=== PATIENT | female | born 1960 | race Caucasian/White ===

== ENCOUNTER 2022-07-19 01:27 | Inpatient (IN) | payer BC ==
[~2022-07-19] VITALS: Ht 165.1 cm; Wt 110.0 kg
[~2022-07-19 01:27] MED LIST: CLOP75TA34 PO; LISI40TA13 PO; LURA40TA PO; PER5325T PO; RES15C PO; TOP100T PO; VENL-190 PO; ZOC40T PO
[2022-07-19 01:42] LABS: BASOPHILS # (AUTO) 0.1 X10'3 (0-0.2); BASOPHILS % (AUTO) 0.8 % (0-1); EOSINOPHILS # (AUTO) 0.3 X10'3 (0-0.9); EOSINOPHILS % (AUTO) 2.4 % (0-6); HEMATOCRIT 54.3 % (35.0-45.0); LYMPHOCYTES # (AUTO) 4.3 X10'3 (1.1-4.8); LYMPHOCYTES % (AUTO) 36.7 % (21-51); MEAN CORPUSCULAR HEMOGLOBIN 31.5 PG (27.0-31.0); MEAN CORPUSCULAR HGB CONC 34.6 g/dL (33.0-36.5); MEAN CORPUSCULAR VOLUME 90.9 FL (78-98); MEAN PLATELET VOLUME 8.4 FL (7.4-10.4); MONOCYTES # (AUTO) 0.8 X10'3 (0-0.9); MONOCYTES % (AUTO) 7.1 % (2-12); NEUTROPHILS # (AUTO) 6.2 X10'3 (1.8-7.7); PLATELET COUNT 237 X10'3 (140-440); RED BLOOD COUNT 5.97 X10'6 (4.20-5.60); RED CELL DISTRIBUTION WIDTH 13.9 % (11.5-14.5); WHITE BLOOD COUNT 11.7 X10'3 (4.5-11.0)
[2022-07-19 01:46] LABS: HEMOGLOBIN 18.8 g/dl (12.0-16.0)
[2022-07-19] MEDS ORDERED: diltiazem 5mg/ml 5ml inj. IV ONE (01:50)
[2022-07-19] MEDS ORDERED: normal saline 1000ml 1,000 ML IV ONE (01:50)
[2022-07-19 01:56] LABS: ALANINE AMINOTRANSFERASE 27 U/L (12-78); ALBUMIN 4.6 G/DL (3.4-5.0); ALKALINE PHOSPHATASE 114 IU/L (46-116); ANION GAP 12 (8-16); ASPARTATE AMINO TRANSFERASE 21 U/L (10-37); BILIRUBIN,TOTAL 0.3 MG/DL (0.1-1.0); BLOOD UREA NITROGEN 10 MG/DL (7-18); CHLORIDE 101 MMOL/L (99-107); CREATININE 0.91 MG/DL (0.40-0.90); GLUCOSE 145 MG/DL (70-104); POTASSIUM 3.5 MMOL/L (3.5-5.1); SODIUM 140 MMOL/L (135-145); TOTAL PROTEIN 9.1 G/DL (6.4-8.2); eGFR 63 ML/MIN
[2022-07-19] MEDS: diltiazem-NS 100mg/100ml 100 ML IV SCH ×2 (02:44→21:35)
[2022-07-19 03:04] LABS: COLOR,URINE STRAW (Yellow); GLUCOSE, URINE NEGATIVE (Neg); KETONES,URINE NEGATIVE (Neg); LEUKOCYTE ESTERASE ,URINE NEGATIVE (Neg); NITRITES, URINE NEGATIVE (Neg); OCCULT BLOOD,URINE SMALL (Neg); PROTEIN,URINE 100 mg/dl (Neg); UROBILINOGEN,URINE 0.2 E.U/dL (0.2-1.0)
[2022-07-19] MEDS ORDERED: mag hydrox/Alum hydrox/simeth 30ml oral suspension PO PRN (03:10)
[2022-07-19] MEDS ORDERED: potassium Cl 20 mEq SR tablet PO PRN ×2 (03:10)
[2022-07-19] MEDS ORDERED: magnesium Cl slow-release 64mg tablet PO PRN (03:10)
[2022-07-19] MEDS ORDERED: magnesium hydroxide 30ml (MOM) UD suspension PO PRN (03:10)
[2022-07-19] MEDS ORDERED: ondansetron/PF 4mg/2ml inj IV PRN (03:10)
[2022-07-19] MEDS ORDERED: PERFLUTREN PROTEIN-A MICROSPHR (Optison) 0.22 MG/ML 3ML VIAL IV PRN (03:10)
[2022-07-19] MEDS ORDERED: magnesium 4gm in 100ml NS 100 ML IV PRN (03:10)
[2022-07-19] MEDS ORDERED: acetaminophen 325mg tablet PO PRN (03:10)
[2022-07-19] MEDS ORDERED: potassium Cl 40MEQ/1/2NS 520ml 520 ML IV PRN (03:10)
[2022-07-19] MEDS ORDERED: normal saline 1000ml 1,000 ML IV SCH (03:10)
[2022-07-19 03:13] LABS: UA COLLECTION TYPE CLN CATCH MIDSTREAM
[2022-07-19 03:17] LABS: URINE AMPHETAMINE SCREEN NEGATIVE (Neg); URINE BARBITUATE SCREEN NEGATIVE (Neg); URINE BENZODIAZEPINES SCREEN NEGATIVE (Neg); URINE CANNABINOID SCREEN NEGATIVE (Neg); URINE COCAINE SCREEN NEGATIVE (Neg); URINE METHADONE SCREEN NEGATIVE (Neg); URINE OPIATE SCREEN NEGATIVE (Neg); URINE PHENCYCLIDINE SCREEN NEGATIVE (Neg)
[2022-07-19 03:21] LABS: AMORPHOUS PHOSPHATES 1+; BACTERIA,URINE FEW /HPF (Neg); CLARITY,URINE SLIGHTLY CLOUDY (Clear); SQUAMOUS EPITHELIAL CELL,UR FEW /LPF (FEW)
--- NOTE | 2022-07-19 04:31 | NUR ---
Therapeutic phlebotmy completed, 200mL blood removed via 20 ga in L A/C. Patient tolerated well. Gonzalez GUAMAN aware. Patient blood pressure showed immediate improvement.
[2022-07-19 04:36] LABS: POTASSIUM 3.6 MMOL/L (3.5-5.1)
--- NOTE | 2022-07-19 04:38 | NUR ---
Patient had sudden decrease in HR and BP. Patient states she is lightheaded and nauseous. Nasrin GUAMAN aware, verbal order for 250mL bolus.
--- NOTE | 2022-07-19 04:45 | NUR ---
Nasrin GUAMAN at bedside. Patient had syncopal episode in which she became bradycardic with HR dropping to 37. Patient had brief LOC but awoke telling jokes and acting to baseline mentation after approx 3 minutes.
[2022-07-19] MEDS: K and/or MAG REPLACEMENT MC SCH ×2 (06:33→19:03)
[2022-07-19] MEDS: losartan 50mg tablet PO SCH (08:14)
[2022-07-19] MEDS: docusate sod 100mg capsule PO SCH ×2 (08:14→19:35)
[2022-07-19] MEDS: heparin, porcine 5000 units/ml vial SQ SCH ×3 (08:15→23:21)
[2022-07-19] MEDS ORDERED: METO50TA16 PO (11:38)
[2022-07-19] MEDS ORDERED: ATOR20TA66 PO (11:38)
[2022-07-19] MEDS ORDERED: VALS80TA32 PO (11:38)
[2022-07-19] MEDS ORDERED: CLON0.2T PO (11:38)
[2022-07-19] MEDS ORDERED: CARSR60C PO (13:04)
[2022-07-19] MEDS ORDERED: CLOP75TA34 PO (13:29)
[2022-07-19 14:20] VITALS: BP 159/83
[2022-07-19] MEDS ORDERED: FLU VACC QS2022-23(6MOS UP)/PF 60 MCG/0.5 ML SYRINGE IMVAC ONE (14:45)
[2022-07-19] MEDS: cloNIDine 0.1 mg tablet PO SCH ×2 (15:14→19:37)
[2022-07-19 18:00] VITALS: BP 159/91
[2022-07-19 23:00] VITALS: BP 137/89
[2022-07-20 02:56] VITALS: BP 144/82
[2022-07-20 05:56] LABS: BASOPHILS % (AUTO) 0.7 % (0-1); EOSINOPHILS # (AUTO) 0.2 X10'3 (0-0.9); EOSINOPHILS % (AUTO) 2.4 % (0-6); HEMATOCRIT 44.7 % (35.0-45.0); LYMPHOCYTES # (AUTO) 2.5 X10'3 (1.1-4.8); LYMPHOCYTES % (AUTO) 37.7 % (21-51); MEAN CORPUSCULAR HEMOGLOBIN 30.9 PG (27.0-31.0); MEAN CORPUSCULAR HGB CONC 33.6 g/dL (33.0-36.5); MEAN CORPUSCULAR VOLUME 91.9 FL (78-98); MEAN PLATELET VOLUME 8.5 FL (7.4-10.4); MONOCYTES # (AUTO) 0.5 X10'3 (0-0.9); MONOCYTES % (AUTO) 7.8 % (2-12); NEUTROPHILS # (AUTO) 3.4 X10'3 (1.8-7.7); NEUTROPHILS % (AUTO) 51.4 % (42-75); PLATELET COUNT 182 X10'3 (140-440); RED BLOOD COUNT 4.86 X10'6 (4.20-5.60); RED CELL DISTRIBUTION WIDTH 13.9 % (11.5-14.5); WHITE BLOOD COUNT 6.5 X10'3 (4.5-11.0)
[2022-07-20 06:00] VITALS: BP 156/99
[2022-07-20 06:17] LABS: ALANINE AMINOTRANSFERASE 22 U/L (12-78); ALBUMIN 3.5 G/DL (3.4-5.0); ALBUMIN/GLOBULIN RATIO 1.1 (1.1-1.5); ALKALINE PHOSPHATASE 77 IU/L (46-116); ANION GAP 4 (8-16); ASPARTATE AMINO TRANSFERASE 18 U/L (10-37); BILIRUBIN,TOTAL 0.5 MG/DL (0.1-1.0); BLOOD UREA NITROGEN 13 MG/DL (7-18); BUN/CREATININE RATIO 14.4 (6.6-38.0); CALCIUM 9.2 MG/DL (8.5-10.1); CHLORIDE 104 MMOL/L (99-107); GLUCOSE 98 MG/DL (70-104); POTASSIUM 4.2 MMOL/L (3.5-5.1); SODIUM 140 MMOL/L (135-145); TOTAL CARBON DIOXIDE 32.1 MMOL/L (24-32); TOTAL PROTEIN 6.8 G/DL (6.4-8.2); eGFR 64 ML/MIN
[2022-07-20] MEDS: docusate sod 100mg capsule PO SCH (07:38)
[2022-07-20] MEDS: losartan 50mg tablet PO SCH (07:38)
[2022-07-20] MEDS: cloNIDine 0.1 mg tablet PO SCH (07:38)
[2022-07-20] MEDS: heparin, porcine 5000 units/ml vial SQ SCH (07:39)
[2022-07-20] MEDS: K and/or MAG REPLACEMENT MC SCH (08:00)
[2022-07-20] MEDS ORDERED: FLU VACC QS2022-23(6MOS UP)/PF 60 MCG/0.5 ML SYRINGE IMVAC ONE (08:00)
[2022-07-20 10:00] VITALS: BP 144/92
[2022-07-20] MEDS ORDERED: APIX5TAB3 PO (12:43)
--- NOTE | 2022-07-20 14:24 | NUR ---
paged Dr Osborn "[id number] Heather Valerio please call [phone], question before discharge. Britt GOMEZ"
[2022-07-20] MEDS ORDERED: DILT-36 PO (14:32)
--- NOTE | 2022-07-20 14:54 | NUR ---
pt educated about discharge paperwork. Ivs removed, left with in private vehicle
== END 2022-07-20 14:53 | disposition home or self-care (01) | DRG 309 ==
LOC: ER 01:27 → ED HOLD 03:14 → EDBEDREQ 12:52 → PCU 3S 14:12
PROVIDERS: ADMIT Internal Medicine; ATTEND Family Medicine
PROC: 5A09357 Assistance with Respiratory Ventilation, Less than 24 Consecutive Hours, Continuous Positive Airway Pressure (ICD-10-PCS; principal; 2022-07-19)
PROC: 5A09357 Assistance with Respiratory Ventilation, Less than 24 Consecutive Hours, Continuous Positive Airway Pressure (ICD-10-PCS; 2022-07-20)
PROC: 3E02340 Introduction of Influenza Vaccine into Muscle, Percutaneous Approach (ICD-10-PCS; 2022-07-20)
DX: I48.91 Unspecified atrial fibrillation (principal); Z68.41 Body mass index [BMI] 40.0-44.9, adult; D75.1 Secondary polycythemia; E78.00 Pure hypercholesterolemia, unspecified; I10 Essential (primary) hypertension; F32.A Depression, unspecified; G47.33 Obstructive sleep apnea (adult) (pediatric); I95.9 Hypotension, unspecified; R00.1 Bradycardia, unspecified; E66.9 Obesity, unspecified; I25.10 Atherosclerotic heart disease of native coronary artery without angina pectoris; J44.9 Chronic obstructive pulmonary disease, unspecified; T44.7X5A Adverse effect of beta-adrenoreceptor antagonists, initial encounter; Y92.89 Other specified places as the place of occurrence of the external cause; Z86.73 Personal history of transient ischemic attack (TIA), and cerebral infarction without residual deficits; Z87.891 Personal history of nicotine dependence; Z91.041 Radiographic dye allergy status; Z95.5 Presence of coronary angioplasty implant and graft; Z23 Encounter for immunization; Z79.899 Other long term (current) drug therapy
CPT/HCPCS: 36415; 71045; 80053; 80305; 81001; 83735; 83880; 84132; 84484; 85025; 87081; 87088; 90686; 93306; 94760; 96361; 96365; 96376; 99285; G0378; J1644; J2405; J3490; J7030; J7050

== ENCOUNTER 2022-09-03 01:53 | Emergency (ER) | payer BC ==
[~2022-09-03] VITALS: Ht 167.6 cm; Wt 120.0 kg
[~2022-09-03 01:53] MED LIST changes: +APIX5TAB3 PO; +ATOR20TA66 PO; -CLOP75TA34 PO; +DILT-36 PO; -LISI40TA13 PO; -LURA40TA PO; -PER5325T PO; -RES15C PO; -TOP100T PO; +VALS80TA32 PO; -VENL-190 PO; -ZOC40T PO
[2022-09-03 02:43] LABS: BASOPHILS # (AUTO) 0.1 X10'3 (0-0.2); BASOPHILS % (AUTO) 0.7 % (0-1); EOSINOPHILS # (AUTO) 0.2 X10'3 (0-0.9); EOSINOPHILS % (AUTO) 2.6 % (0-6); HEMOGLOBIN 15.5 g/dl (12.0-16.0); LYMPHOCYTES # (AUTO) 2.7 X10'3 (1.1-4.8); LYMPHOCYTES % (AUTO) 33.5 % (21-51); MEAN CORPUSCULAR HEMOGLOBIN 31.5 PG (27.0-31.0); MEAN CORPUSCULAR HGB CONC 34.5 g/dL (33.0-36.5); MEAN CORPUSCULAR VOLUME 91.2 FL (78-98); MEAN PLATELET VOLUME 8.1 FL (7.4-10.4); MONOCYTES # (AUTO) 0.5 X10'3 (0-0.9); MONOCYTES % (AUTO) 6.1 % (2-12); NEUTROPHILS # (AUTO) 4.6 X10'3 (1.8-7.7); NEUTROPHILS % (AUTO) 57.1 % (42-75); PLATELET COUNT 196 X10'3 (140-440); RED BLOOD COUNT 4.93 X10'6 (4.20-5.60); RED CELL DISTRIBUTION WIDTH 13.8 % (11.5-14.5)
[2022-09-03 02:45] LABS: ALANINE AMINOTRANSFERASE 18 U/L (12-78); ALBUMIN/GLOBULIN RATIO 1.1 (1.1-1.5); ALKALINE PHOSPHATASE 94 IU/L (46-116); ANION GAP 9 (8-16); ASPARTATE AMINO TRANSFERASE 15 U/L (10-37); BILIRUBIN,TOTAL 0.4 MG/DL (0.1-1.0); BLOOD UREA NITROGEN 13 MG/DL (7-18); BUN/CREATININE RATIO 16.7 (10.0-20.0); CALCIUM 9.4 MG/DL (8.5-10.1); CHLORIDE 103 MMOL/L (99-107); CREATININE 0.78 MG/DL (0.40-0.90); GLUCOSE 102 MG/DL (70-104); POTASSIUM 3.3 MMOL/L (3.5-5.1); SODIUM 141 MMOL/L (135-145); TOTAL PROTEIN 7.8 G/DL (6.4-8.2); eGFR 75 ML/MIN
[2022-09-03 02:51] LABS: MAGNESIUM 2.1 MG/DL (1.5-2.4)
[2022-09-03 04:22] VITALS: BP 187/116
== END 2022-09-03 04:28 | disposition home or self-care (01) ==
LOC: ER 01:54
DX: I10 Essential (primary) hypertension (principal); E78.00 Pure hypercholesterolemia, unspecified; I11.0 Hypertensive heart disease with heart failure; J44.9 Chronic obstructive pulmonary disease, unspecified; Z88.8 Allergy status to other drugs, medicaments and biological substances; Z79.899 Other long term (current) drug therapy
CPT/HCPCS: 36415; 80053; 83735; 83880; 84484; 85025; 93005; 99284

== ENCOUNTER 2025-03-13 08:37 | Inpatient (IN) | payer BC ==
[~2025-03-13] VITALS: Ht 167.6 cm; Wt 124.5 kg
[2025-03-13] VITALS (12 sets, daily range): BP systolic 148–190; BP diastolic 83–103; PULSE 78–122; RESP 16–24; TEMP 97.9; O2SAT 94–97
--- NOTE | 2025-03-13 08:47 | ELECTROCARDIOGRAPH REPORT ---
[facility] Test Date: 2025-03-13 Test Time: 08:45:03 Pat Name: MARGARETH RAM Department: EMERGENCY ROOM Room: [place] [address] Gender: F Radiographer Angiogram: ELIZABETH : 1960 Requested By: ALLIE FOURNIER Order Number: [id number] Reading MD: Dr. Anderson Luz Measurements Intervals [place] Rate: 115 P: 56 OH: 151 QRS: 43 QRSD: 90 T: 121 QT: 336 QTc: 465 Interpretive Statements Atrial-paced complexes Repol abnrm suggests ischemia, lateral leads Minimal ST elevation, inferior leads Electronically Signed On 03-13-2025 20:30:[address] Anderson Luz Please click the below link to view image of tracing.
[2025-03-13] MEDS: ipratropium/albuterol 3ml nebule NEB ONE (08:54)
--- NOTE | 2025-03-13 09:11 | RADIOLOGY REPORT ---
CHEST RADIOGRAPH Indication: SOB Technique: Single frontal view of the chest was obtained COMPARISON: CHEST,SINGLE VIEW on DOS: 07/19/22, CHEST,SINGLE VIEW on DOS: 06/28/22 FINDINGS: Lines and Tubes: None Lungs: Congestion Pleura: No effusion. No pneumothorax. Cardiomediastinal contours: Unremarkable Bones: Unremarkable IMPRESSION: Increased interstital prominence. This may represent pulmonary vascular congestion and/or viral pneumonia. Clinical correlation advised.
[2025-03-13 09:27] LABS: MEAN PLATELET VOLUME 9.4 FL (7.4-10.4); RED CELL DISTRIBUTION WIDTH 13.7 % (11.5-14.5)
[2025-03-13 09:32] LABS: APTT 31 SECONDS (22-32); INR 1.1 INR
[2025-03-13 09:34] LABS: CREATININE 0.74 MG/DL (0.40-0.90); TOTAL CARBON DIOXIDE 27.8 MMOL/L (24-32); eCRCL 72 ML/MIN; eGFR 79 ML/MIN
[2025-03-13 09:41] LABS: PRO BRAIN NATRIURETIC PEPTIDE 797 PG/ML (0-125)
[2025-03-13 10:10] LABS: ABG BASE EXCESS 0.1 mmol/L (-2.0-3.0); ABG HCO3 24.1 mmol/L (21.0-28.0); ABG OXYGEN SATURATION 91.6 % (94.0-98.0); ABG PCO2 (T) 38.9 mmHg (32.0-45.0); ABG PH (T) 7.414 (7.350-7.450); ABG PO2 (T) 63.1 mmHg (83.0-108.0); ALLEN'S TEST POSITIVE; FCOHb 2.5 % (0.5-1.5); FHHb 8.2 % (0.0-5.0); FIO2 21.0 mmHg/%; FMetHb 0.2 % (0.0-1.5); FO2Hb 89.1 % (94.0-98.0); MODE ROOM AIR; PATIENT TEMPERATURE 37.7; TOTAL HEMOGLOBIN 16.7 G/dl (12.0-16.0)
--- NOTE | 2025-03-13 10:37 | Physician Documentation ---
History of Present Illness ~ Chief Complaint: Shortness of Breath Stated Complaint: SOB Time Seen by MD: 08:42 OK to notify your PCP?: Yes Primary Medical Doctor: Kirsty Tom MD Mode of Arrival: EMS HPI 64-year-old female patient with a history of hypertension, dyslipidemia, CVA, atrial fibrillation on Eliquis who is current smoker two pack a day came to the emergency room because of shortness a breath palpitation. The patient denies chest pain. She was found to be having real difficulty breathing this morning and that is why they called the ambulance. No fever no chills. No nausea vomiting abdominal pain. No trauma. Medication Reconciliation Allergies: Coded Allergies: iodine (Verified Allergy, Severe, facial edema, 06/28/22) bupropion HCl (Verified Adverse Reaction, Unknown, increased depression, 06/28/22) Uncoded Allergies: IV DYE, IODINE CONTAINING CONTRAST (Allergy, Severe, facial edema, 06/28/22) Scheduled Apixaban (Eliquis), 5 MG PO BID Atorvastatin Calcium (Atorvastatin Calcium), 1 TAB PO DAILY, (Reported) Diltiazem HCl (Diltiazem 24Hr Cd), 1 CAP PO DAILY Valsartan (Valsartan), 1 TAB PO DAILY, (Reported) Past Medical History Past Medical History: Atrial Fibrillation, Coronary Artery Disease, High Cholesterol, Hypertension, COPD Past Surgical History: orthopedic surgeries Other Past Surgical History: cardiac stents Alcohol Use: None Drug Use: none Lives In: Home Review of Systems ROS As stated above in the HPI, otherwise all systems are reviewed and negative. Physical Exam Vital Signs: Temperature: 97.7, Source: Temporal, Heart Rate: 103, Respiratory Rate: 20, BP: 237/134, Pulse Oximetry: 96, Weight: 122.500 Oxygen Flow Rate: 6.0 Physical Exam Reviewed vital signs and they are well within normal range. Notes blood pressure is elevated. Const: In moderate respiratory distress Head: Atraumatic Eyes: Normal Conjunctiva ENT: Normal External Ears, Nose and Mouth. Moist mucous membranes Neck: Full range of motion. No meningismus Resp: Diminished breath sounds bilaterally. Normal work of breathing Cardio: Regular rate and rhythm, no murmurs. Skin well perfused, heart rate is 108 beats per minute regular Abd: Soft, non-tender, non-distended. Normal bowel sounds. No rebound or guarding Skin: No petechiae or rashes. Warm and dry Back: No midline or flank tenderness Ext: No cyanosis, or edema Neuro: Awake and alert Psych: Normal Mood and Affect Progress Results/Orders Results/Orders Orders - ALLIE FOURNIER MD Chest,Single View (03/13/25 08:43) Monitor (03/13/25 08:43) Svn Treatment (03/13/25 08:43) Hs Troponin I W Calculations (03/13/25 10:43) Hs Troponin I W Calculations (03/13/25 11:43) Abg (Arterial Blood Gas) (03/13/25 10:12) Clonidine Tablet (Catapres Tablet) (03/13/25 10:30) Losartan Potass Tablet (Cozaar Tablet) (03/14/25 08:00) Levofloxacin-Levaquin 500mg/D5 (Levaquin (03/13/25 10:35) Page Hospitalist (03/13/25 10:31) Completed Orders - ALLIE FOURNIER MD Electrocardiogram (03/13/25 08:43) Cbc/Diff (03/13/25 08:43) Chest,Single View (03/13/25 08:43) Methylprednisolone Sod Succ (Solumedrol (03/13/25 08:45) PBNP (03/13/25 08:43) BMP (03/13/25 08:43) PTT (03/13/25 08:43) Pt Inr (03/13/25 08:43) Hs Troponin I W Calculations (03/13/25 08:43) Ipratropium/Albuterol Nebule (Ipratrop/A (03/13/25 08:45) Liver Panel (03/13/25 08:43) Medications Received in ER Medications (Trade) Dose Ordered Sig/Margarita Route PRN Reason Start Time Stop Time Status Last Admin Dose Admin (SoluMEDROL 125mg inj) 125 mg ONCE ONCE IV 03/13/25 08:45 03/13/25 08:46 DC 03/13/25 08:55 125 MG (ipratrop/ albuterol 0.5-3(2.5) MG/3ml nebule) 3 ml ONCE ONCE NEB 03/13/25 08:45 03/13/25 08:46 DC 03/13/25 08:54 3 ML Vital Signs 03/13/25 03/13/25 03/13/25 03/13/25 08:41 08:48 08:56 08:56 Temp 97.7 Pulse 32 110 107 103 Resp 18 20 22 24 B/P (MAP) 160/100 237/134 (168) Pulse Ox 97 96 96 O2 Delivery Simple Mask* Simple Mask* O2 Flow Rate 6.0 6.0 8 8 FiO2 60 60 03/13/25 09:29 Resp 20 B/P (MAP) Laboratory Tests Test 03/13/25 09:11 03/13/25 10:05 White Blood Count 14.7 H Red Blood Count 5.20 Hemoglobin 16.2 H Hematocrit 47.9 H Mean Corpuscular Volume 92.0 Mean Corpuscular Hemoglobin 31.1 H Mean Corpuscular Hemoglobin Concent 33.8 Red Cell Distribution Width 13.7 Platelet Count 173 Mean Platelet Volume 9.4 Neutrophils (%) (Auto) 80.0 H Lymphocytes (%) (Auto) 14.2 L Monocytes (%) (Auto) 4.6 Eosinophils (%) (Auto) 0.7 Basophils (%) (Auto) 0.5 Neutrophils # (Auto) 11.8 H Lymphocytes # (Auto) 2.1 Monocytes # (Auto) 0.7 Eosinophils # (Auto) 0.1 Basophils # (Auto) 0.1 CBC Comment Prothrombin Time 11.1 INR International Normalized Ratio 1.1 Activated Partial Thromboplast Time 31 Coagulation Comments Sodium Level 141 Potassium Level 3.9 Chloride Level 105 Carbon Dioxide Level 27.8 Anion Gap 8 Blood Urea Nitrogen 10 Creatinine 0.74 Estimated GFR/1.73 m2 79 BUN/Creatinine Ratio 13.5 Glucose Level 148 H Calcium Level 9.1 Total Bilirubin 0.8 Direct Bilirubin 0.1 Aspartate Amino Transf (AST/SGOT) 24 Alanine Aminotransferase (ALT/SGPT) 22 Alkaline Phosphatase 104 Troponin I High Sensitivity 33 Pro-B-Type Natriuretic Peptide 797 H Total Protein 7.6 Albumin 3.5 Globulin 4.1 Albumin/Globulin Ratio 0.9 L Chemistry Comments Blood Gas Specimen Type Arterial Blood Gas Puncture Site Rr O2 Saturation 91.6 L Arterial Blood pH (Temp corrected) 7.414 Arterial Blood pCO2 (Temp correct) 38.9 Arterial Blood pO2 (Temp corrected) 63.1 L Arterial Blood PO2/FiO2 Ratio 2.86 Arterial Blood HCO3 24.1 Arterial Blood Base Excess 0.1 Arterial Blood Oxyhemoglobin 89.1 L Arterial Blood Carboxyhemoglobin 2.5 H Arterial Blood Methemoglobin 0.2 Arterial Blood Deoxyhemoglobin 8.2 H Rory Test Positive Blood Gas Hemoglobin 16.7 H Blood Gas Temperature 37.7 Blood Gas Modality Room air FiO2 21.0 Medical Decision Making Findings ER Course/Med. Decision Making REVIEW of RECORD(S): Previous medical records here and/or external medical records, such as that provided directly by the patient, by EMS and/or outside medical facilities, if available, were reviewed. COMORBIDITIES obesity, smoking, COPD asthma, atrial fibrillation on Eliquis, MDM During the physical examination, the findings suggestive of acute life- threatening condition such as JVD, tracheal deviation, acidotic breathing, noisy stridorous breath sounds, pulses paradoxus, muffled heart sounds, unequal breath sounds, abdominal rigidity and rebound tenderness, focal neurological deficits, cool clammy skin, severe hypotension, severe tachycardia or bradycardia are absent. Patient presenting for onset shortness a breath. Vital signs reviewed. Patient is hemodynamically stable and does not meet SIRS criteria. Patient appears nontoxic on exam. ED MD interpretation of EKG done at 0845 : sinus rhythm at 115. Normal axis and normal intervals and no acute ischemic changes. The patient's CBC and CMP are normal. Chest x-ray could be viral pneumonia. Patient was treated as COPD exacerbation and hypertension uncontrolled. I will admit the patient for acute COPD exacerbation. Consideration of PE was done but the patient is already on Eliquis and does not have any risk factors. Therefore I will not pursue in that direction. TREATMENT/DISPOSITION: The patient's presentation is most consistent with acute COPD exacerbation, uncontrolled hypertension. DISCLAIMER: Inadvertent spelling and grammatical errors are likely due to EMR/dictation software use and do not reflect on the overall quality of patient care. Note that the electronic time recorded on this note does not necessarily reflect the actual time of the patient encounter. Differential Dx:Considerations: Include: anxiety, asthma, bronchitis, cardiogenic shock, CHF, COPD, dysrhythmia, hypertension, accelerated, hype rtension, malignant, myocardial infarction, panic attack, pneumonia, pneumonitis, pneumothorax, PSVT, pulmonary embolism, respiratory distress, respiratory failure Departure Disposition: 09 ADMITTED INPATIENT Impression: Primary Impression: Acute exacerbation of chronic obstructive airways disease Additional Impression: Uncontrolled hypertension Condition: Fair Referrals: NO PRIMARY CARE PROVIDER (PCP) Signature Scribe Signature: x Attestation: ALLIE Wang MD Mar 13, 2025 10:37
[2025-03-13] MEDS: levoFLOXACIN-Levaquin 500mg/D5 100 ML IV ONE (10:48)
[2025-03-13] MEDS ORDERED: HYDROcodone/acetaminophen 5mg/325mg tablet PO PRN (11:20)
[2025-03-13] MEDS ORDERED: magnesium hydroxide 30ml (MOM) UD suspension PO PRN (11:20)
[2025-03-13] MEDS ORDERED: potassium Cl 20 mEq SR tablet PO PRN ×2 (11:20)
[2025-03-13] MEDS ORDERED: potassium Cl 40MEQ/1/2NS 520ml 520 ML IV PRN (11:20)
[2025-03-13] MEDS ORDERED: magnesium sulf-water 4G/100mL 100 ML IV PRN (11:20)
[2025-03-13] MEDS ORDERED: HYDROcodone/acetaminophen 10/325mg tab PO PRN (11:20)
[2025-03-13] MEDS ORDERED: ondansetron 4mg rapidly disintigrating tab PO PRN (11:20)
[2025-03-13] MEDS ORDERED: mag hydrox/Alum hydrox/simeth 30ml oral suspension PO PRN (11:20)
[2025-03-13] MEDS ORDERED: albuterol 2.5 MG/3 ML nebule NEB PRN (11:20)
[2025-03-13] MEDS ORDERED: magnesium sulf-water 2g/50mL 50 ML IV PRN (11:20)
--- NOTE | 2025-03-13 11:32 | HISTORY AND PHYSICAL ---
History & Physical Providers to CC ~ History of Present Illness Reason for Admit\Complaint: Acute respiratory failure, hypertensive emergency History of Present Illness Heather Valerio is a 64-year-old female with a past medical history of hypertension, COPD not on home oxygen or inhaler, chronic tobacco abuse including currently, CVA, atrial fibrillation on Eliquis who presented to the ED with chief complaint of acute onset shortness of breath x 1 day. Patient also reports palpitations, headache and blurry vision. Patient denies prior MD/CAD, DVT/PE, or GIB. Patient denies chest pain, extremity weakness, slurred speech, loss of consciousness, fall, abdominal pain, n/v/d, fever, chills, dysuria. Patient is to be admitted for further workups and treatment. Allergies: Coded Allergies: iodine (Verified Allergy, Severe, facial edema, 06/28/22) bupropion HCl (Verified Adverse Reaction, Unknown, increased depression, 06/28/22) Uncoded Allergies: IV DYE, IODINE CONTAINING CONTRAST (Allergy, Severe, facial edema, 06/28/22) Home Medications Home Medications Active Diltiazem 24Hr Cd (Diltiazem HCl) 180 Mg Cap.er.24h 1 Cap PO DAILY 30 Days Eliquis (Apixaban) 5 Mg Tablet 5 Mg PO BID Reported Valsartan 80 Mg Tablet 1 Tab PO DAILY Atorvastatin Calcium 20 Mg Tablet 1 Tab PO DAILY Past Medical History Past Medical History Chronic tobacco abuse COPD Atrial fibrillation Hypertension Hyperlipidemia Class III obesity DARINEL Past Surgical History Surgical History Comment Tonsillectomy Past Social History Social History Comment Alcohol: Denies Tobacco: 40 pack year history, current smoker Illicit drug use: Denies Living situation: Lives at home with spouse ROS ROS Other than positives in HPI, all 14 review of systems are negative Exam Vitals: Vital Signs Date Time Temp Pulse Resp B/P (MAP) Pulse Ox O2 Delivery O2 Flow Rate FiO2 03/13/25 11:18 93 12 193/101 (131) 97 03/13/25 08:56 Simple Mask* 8 60 03/13/25 08:41 97.7 General: Generalized weakness, A&Ox 3, NAD, morbidly obese HEENT: Normocephalic, PERRLA Neck: Supple, trachea midline, no JVD Chest: Clear to auscultation bilaterally Cardiovascular: Regular, rapid Abdomen: Soft and nontender Extremities: No cyanosis/clubbing/or edema Central Nervous System: CN II-XII intact, no focal deficits Musculoskeletal: 5/5 strength BUE and BLE; No paraspinal muscle tenderness, no muscle spasm Skin: Warm and intact Diagnostic Data Last Recorded Lab Results: 03/13/25 0911 03/13/25 0911 Diagnostic Data: Laboratory Tests Test 03/13/25 09:11 Prothrombin Time 11.1 SECONDS (9.0-12.0) INR International Normalized Ratio 1.1 INR Activated Partial Thromboplast Time 31 SECONDS (22-32) Coagulation Comments Counseling Services Smoking & Tobacco Cessation: > 10 Minutes Additional Plan Assessment & Plan Acute hypoxic respiratory failure Community-acquired pneumonia, covering for Gram-positive and Gram-negative Severe sepsis 2/2 PNA Respiratory alkalosis Hypertensive emergency NSTEMI likely Type II 2/2 above Afib w/ RVR likely 2/2 hypoxia -denies chest pain, EKG a paced at 115bpm, no ST elevation/depression, CXR pulm vascular congestion and pneumonia, Well's score 1.5, VQ scan low probability for PE, CT chest shows pneumonia -the sedation, abx, bronchodilators, IV labetalol prn, IV hydralazine, clonidine, oral hydralazine, diltiazem -follow tsh/t4, blood cx, repeat lactic acid Chronic tobacco abuse, including currently COPD Hypertension Hyperlipidemia Class III obesity DARINEL -CPAP at night, nicotine patch, follow lipid panel DVT/VTE prophylaxis: Eliquis Code status: Full code I spent a total of 16 minutes on smoking cessation education. I provided extensive counseling regarding smoking cessation. I spent a total of 35 minutes discussing Advanced Care Planning measures with the patient. Advance care planning: Discussed with patient the importance of advance care planning in case of emergent situation. We discussed various resuscitative measures/ ACP with the patient at the time of admission. Patient voiced understanding and patient has decided on a full code status. Date of Service: Mar 13, 2025 Billing Provider: PATRICK SOLOMON Common Visit Codes: [id number] INP/OBS CARE (HIGH) Secondary Visit Codes: [id number] CHNG SMOKING >10MIN, [id number] CARE PLAN 30 MINUTES PATRICK SOLOMON Mar 13, 2025 11:32
[2025-03-13] MEDS: PERFLUTREN PROTEIN-A MICROSPHR (Optison) 0.22 MG/ML 3ML VIAL IV ONE (11:51)
[2025-03-13] MEDS: ipratropium/albuterol 3ml nebule NEB SCH (12:00)
[2025-03-13] MEDS: nicotine 21mg patch - 24 hr TD ONE (12:08)
[2025-03-13] MEDS: labetalol 20mg/4ml (5mg/ml) syringe IV ONE ×2 (12:08→14:52)
[2025-03-13 12:17] LABS: LEUKOCYTE ESTERASE ,URINE NEGATIVE (Neg); NITRITES, URINE NEGATIVE (Neg); OCCULT BLOOD,URINE TRACE-INTACT (Neg)
[2025-03-13] MEDS: ringers solution, lacted 1,000 ML IV ONE ×4 (12:26→22:58)
[2025-03-13] MEDS: diltiazem CD 180mg cap (once-daily) PO ONE (12:26)
[2025-03-13 12:30] LABS: UA COLLECTION TYPE NON-SPECIFIED
[2025-03-13 12:32] LABS: SQUAMOUS EPITHELIAL CELL,UR MODERATE /LPF (FEW)
[2025-03-13 12:34] LABS: YEAST FEW /HPF (NEGATIVE)
--- NOTE | 2025-03-13 13:57 | RADIOLOGY REPORT ---
NUCLEAR MEDICINE VENTILATION/PERFUSION LUNG SCAN. INDICATION: resp failure TECHNIQUE: Following intravenous demonstration of 5.5 millicuries of technetium 99m MAA, and inhalation of 42.9 mCi of Tc 99m DTPA scintigrams were obtained in multiple projections of the lungs. FINDINGS: There is no large mismatched defect. No large perfusion defect. IMPRESSION: Low probability for PE.
[2025-03-13] MEDS: cloNIDine 0.3mg/24 hour patch (7 day patch) TD ONE (14:52)
[2025-03-13] MEDS ORDERED: heparin, porcine 5000 units/ml vial SQ SCH (16:00)
[2025-03-13] MEDS: hydrALAZINE 20mg/ml inj. IV ONE (16:08)
--- NOTE | 2025-03-13 17:14 | RADIOLOGY REPORT ---
CT Chest without intravenous contrast INDICATION: pnemonia TECHNIQUE: Multidetector spiral CT of the chest was performed from the lung apices to the upper abdomen. Axial, coronal and sagittal multiplanar reformats were performed. Radiation Dose : 1. Chest: CTDI volume is 19 mGy. Dose-length product is 730 mGy*cm The dose indicators for CT are the volume Computed Tomography (CT) Dose Index (CTDIvol) and the Dose Length Product (DLP), and are measured in units of mGy and mGy-cm, respectively. These indicators are not patient dose, but values generated from the CT scanner acquisition factors. The report includes radiation exposure data for exposures received during this examination. Comparison: None Findings: Lower neck: Normal thyroid. Lungs: Bibasilar consolidations may reflect pneumonia or aspiration. Heart/Vascular Structures: Normal heart size. No pericardial effusion. Lymph Nodes: No adenopathy Pleura: Trace bilateral pleural effusions. Musculoskeletal: No acute osseous abnormality. Soft tissues: Normal. Upper abdomen: Limited portions of the upper abdomen are unremarkable. IMPRESSION: 1. Bibasilar consolidations may reflect pneumonia or aspiration. 2. Trace bilateral pleural effusions. Radiation optimization: All CT scans at this facility use at least one of these dose optimization techniques: automated exposure control mA and/or kV adjustment per patient size (includes targeted exams where dose is matched to clinical indication) or iterative reconstruction.
[2025-03-13] MEDS: VANCOMYCIN 2GM/400ML H20 (PEG) 400 ML IV ONE (18:04)
[2025-03-13 18:20] LABS: CREATININE 0.91 MG/DL (0.40-0.90); TOTAL CARBON DIOXIDE 25.6 MMOL/L (24-32); eCRCL 58 ML/MIN; eGFR 62 ML/MIN
[2025-03-13] MEDS ORDERED: SERT-433 PO (19:05)
[2025-03-13] MEDS ORDERED: CLON0.1T2 PO (19:05)
[2025-03-13] MEDS ORDERED: OLME40TA18 PO (19:05)
[2025-03-13] MEDS ORDERED: DICL100G59 TOP (19:05)
[2025-03-13] MEDS ORDERED: niCARDipine-NS 40mg/200ml IVPB 200 ML IV SCH (19:40)
--- NOTE | 2025-03-13 19:56 | CARDIOLOGY REPORT ---
APPROVED REPORT EXAM: Comprehensive 2D, Doppler, and color-flow Echocardiogram. Patient Location: [facility] Blood Pressure: 193/101 mmHg Heart Rate: 75 bpm Indications Shortness of Breath Hypertension Troponin: 86, 123 COPD CVA Atrial Fibrillation ICT SALES ASSISTANT: Elvira Cardona MD Previous ECHO: 07/19/22, EF: 65-70 2D Dimensions LA Diam 3.6 cm IVSd 2.2 (0.7-1.1cm) LVDd 3.5 cm PWd 1.5 (0.7-1.1cm) IVSs 2.1 (0.8-1.2cm) LVDs 2.3 (2.5-4.0cm) PWs 1.9 (0.8-1.2cm) LVOT Diameter 1.87 (1.8-2.4cm) LVEF(%) 64.0 (>50%) Ao Asc Diam. 3.12 cm IVC 22.56 mm FS (%) 34.0 % SV 32.6 ml CO 2.5 L/min M-Mode Dimensions Left Atrium(MM) 3.07 (2.5-4.0cm) Aortic Root 3.61 (2.2-3.7cm) Aortic Cusp Exc 1.30 (1.5-2.0cm) MV EPSS 0.4 (<0.5cm) Aortic Valve AoV Peak Colt. 154.6 cm/s AoV VTI 26.8 cm AO Peak GR. 9.6 mmHg AO Mean GR. 4 mmHg LVOT VTI 20.21 cm LVOT Peak Colt. 107.4 cm/s STANLEY(VTI)/BSA 2.08 cm2/m2 STANLEY (VTI) 2.08 cm2 Mitral Valve MV E Velocity 119.7 cm/s MV Peak Gr. 7 mmHg MV DECEL TIME 236 ms MV A Velocity 58.4 cm/s MV PHT 84 ms E/A Ratio 2.0 MVA (PHT) 2.62 cm2 MV VMax 127.7 cm/s TDI Lateral E' P. V 7.41 cm/s E/Lateral E' 16.2 Tricuspid Valve TR P. Velocity 251 cm/s RAP ESTIMATE 10 mmHg TR Peak Gr. 25 mmHg RVSP 35 mmHg LEFT VENTRICLE Normal LV size and function. Moderate to severe concentric hypertrophy. LVEF is 65-70%. RIGHT VENTRICLE RV is normal size and function. ATRIA The left atrium size is normal. AORTIC VALVE Trileaflet AV appears mildly sclerotic without stenosis. No insufficiency. MITRAL VALVE Mitral valve leaflets are mildly thickened with mild annular calcification. No stenosis. Trace regurgitation. TRICUSPID VALVE The tricuspid valve is normal in structure with trace regurgitation. PULMONIC VALVE Pulmonic valve is grossly normal in structure with physiologic insufficiency. GREAT VESSELS The aortic root is normal in size. The ascending aorta is normal in size. IVC is dilated and collapses greater than 50% with inspiration. PERICARDIUM Normal pericardium. No effusion. Other Information Study Quality: Adequate Conclusion Normal LV size and function. Moderate to severe concentric hypertrophy. LVEF is 65-70%. RV is normal size and function. The left atrium size is normal. Trileaflet AV appears mildly sclerotic without stenosis. No insufficiency. Mitral valve leaflets are mildly thickened with mild annular calcification. No stenosis. Trace regurgitation. The tricuspid valve is normal in structure with trace regurgitation. Pulmonic valve is grossly normal in structure with physiologic insufficiency. Normal pericardium. No effusion.
[2025-03-13] MEDS: K and/or MAG REPLACEMENT MC SCH (20:00)
[2025-03-13] MEDS: docusate sod 100mg capsule PO SCH (20:13)
[2025-03-13] MEDS: diltiazem 30mg tablet PO ONE (21:15)
[2025-03-13] MEDS ORDERED: DILT-36 PO (21:19)
[2025-03-13] MEDS: ringers solution, lacted 1,000 ML IV SCH (22:59)
[2025-03-14] VITALS (19 sets, daily range): BP systolic 134–188; BP diastolic 84–109; PULSE 76–122; RESP 14–22; TEMP 97.1–98.2; O2SAT 90–98
[2025-03-14] MEDS: hydrALAZINE 20mg/ml inj. IV ONE (02:11)
[2025-03-14] MEDS: vancomycin/NS 1 GM ADD-VANTAGE 250 ML IV SCH (02:12)
[2025-03-14 02:54] LABS: MEAN PLATELET VOLUME 9.2 FL (7.4-10.4); RED CELL DISTRIBUTION WIDTH 14.2 % (11.5-14.5)
[2025-03-14 03:08] LABS: CHOL/HDL RATIO 3.6 (0.00-4.99); CREATININE 0.68 MG/DL (0.40-0.90); LDL CHOLESTEROL 90 MG/DL (50-100); TOTAL CARBON DIOXIDE 27.2 MMOL/L (24-32); eCRCL 78 ML/MIN; eGFR 87 ML/MIN
[2025-03-14] MEDS: metoprolol tartrate 1mg/ml inj IV ONE (07:22)
[2025-03-14] MEDS: nicotine 21mg patch - 24 hr TD SCH (08:00)
[2025-03-14] MEDS ORDERED: diltiazem CD 180mg cap (once-daily) PO SCH (08:00)
[2025-03-14] MEDS ORDERED: metoprolol tartrate 1mg/ml inj IV PRN (08:00)
[2025-03-14] MEDS: CefTRIAXone 2gm/D5W 50ml BAG 50 ML IV SCH (08:40)
[2025-03-14] MEDS: azithromycin/NS 500mg/250ml 250 ML IV SCH (08:41)
[2025-03-14] MEDS: diltiazem SR 60mg capsule (twice daily) PO SCH (08:42)
--- NOTE | 2025-03-14 09:45 | PROGRESS NOTE ---
Daily Progress Note Providers to CC ~ Antibiotic Timeout Antibiotic Ordered?: Yes Subjective No acute events overnight. Patient examined at bedside. No new complaints, not in acute distress. Patient denies chest pain, sob, palpitations, abdominal pain, n/v/d. Tele afib rvr in 120s, labs notable for normalized lactic acid. Then rate controlled in 80s with iv metoprolol tart. TTE LVEF 65-70%, RVSP 35mmHg, normal size left atrium, no significant valvular heart disease. Objective Vital Signs Date Time Temp Pulse Resp B/P (MAP) Pulse Ox O2 Delivery O2 Flow Rate FiO2 03/14/25 09:00 105 154/92 (112) 03/14/25 08:17 18 Nasal Cannula 1.0 03/14/25 08:10 98 28 03/14/25 02:00 97.1 Result Diagram: 03/14/2523403/14/25234 General: Generalized weakness, A&Ox 3, NAD, morbidly obese HEENT: Normocephalic, PERRLA Neck: Supple, trachea midline, no JVD Chest: Clear to auscultation bilaterally Cardiovascular: IRIR Abdomen: Soft and nontender Extremities: No cyanosis/clubbing/or edema Central Nervous System: CN II-XII intact, no focal deficits Musculoskeletal: 5/5 strength BUE and BLE; No paraspinal muscle tenderness, no muscle spasm Skin: Warm and intact Coagulation Studies Laboratory Tests Test 03/13/25 09:11 Prothrombin Time 11.1 SECONDS (9.0-12.0) INR International Normalized Ratio 1.1 INR Activated Partial Thromboplast Time 31 SECONDS (22-32) Coagulation Comments Problem\Assessment\Plan Assessment & Plan Acute hypoxic respiratory failure Community-acquired pneumonia, covering for Gram-positive and Gram-negative Severe sepsis 2/2 PNA Respiratory alkalosis Hypertensive emergency NSTEMI likely Type II 2/2 above Afib w/ RVR likely 2/2 hypoxia -denies chest pain, EKG a paced at 115bpm, no ST elevation/depression, CXR pulm vascular congestion and pneumonia, Well's score 1.5, VQ scan low probability for PE, CT chest shows pneumonia -the sedation, abx, bronchodilators, IV labetalol prn, IV hydralazine, clonidine, oral hydralazine, diltiazem -follow tsh/t4, blood cx, repeat lactic acid 03/14: Tele afib rvr in 120s, then rate controlled in 80s after metoprolol tart iv. On oral metoprolol tart, diltiazem, amiodarone. Lactic acid normalized. TTE LVEF 65-70%, RVSP 35mmHg, normal size left atrium, no significant valvular heart disease. Serum lytes wnl, will follow thyroid panel Chronic tobacco abuse, including currently COPD Hypertension Hyperlipidemia Class III obesity DARINEL -CPAP at night, nicotine patch, follow lipid panel DVT/VTE prophylaxis: Eliquis Code status: Full code Date of Service: Mar 14, 2025 Billing Provider: PATRICK SOLOMON Common Visit Codes: [id number] INP/OBS CARE(HIGH) PATRICK SOLOMON Mar 14, 2025 09:45
[2025-03-14] MEDS: ondansetron/PF 4mg/2ml inj IV PRN (11:25)
[2025-03-14] MEDS: VANCOMYCIN LEVEL IV ONE (16:13)
[2025-03-15] VITALS (13 sets, daily range): BP systolic 148–198; BP diastolic 69–109; PULSE 67–115; RESP 12–20; TEMP 97.2–97.8; O2SAT 90–96
[2025-03-15] MEDS: hydrALAZINE 20mg/ml inj. IV PRN (03:16)
[2025-03-15] MEDS: nitroGLYCERIN 1gm ointment UD TP ONE ×2 (07:00→08:58)
[2025-03-15 07:07] LABS: MEAN PLATELET VOLUME 9.1 FL (7.4-10.4); RED CELL DISTRIBUTION WIDTH 14.3 % (11.5-14.5)
[2025-03-15 07:42] LABS: CREATININE 0.80 MG/DL (0.40-0.90); TOTAL CARBON DIOXIDE 24.9 MMOL/L (24-32); eCRCL 67 ML/MIN; eGFR 72 ML/MIN
[2025-03-15] MEDS ORDERED: ISOS30TA84 PO (09:59)
[2025-03-15] MEDS ORDERED: METO50TA16 PO (09:59)
[2025-03-15] MEDS ORDERED: CARSR60C PO (09:59)
[2025-03-15] MEDS ORDERED: HYDR50TA46 PO (09:59)
[2025-03-15] MEDS ORDERED: LEVO750T68 PO (09:59)
[2025-03-15] MEDS ORDERED: ALBU90AE INH (09:59)
[2025-03-15] MEDS: isosorbide mononitrate 30mg tab.SR.24H PO ONE (10:09)
[2025-03-15] MEDS ORDERED: FLUT1DIS4 INH (13:36)
--- NOTE | 2025-03-15 17:16 | DISCHARGE SUMMARY ---
Discharge Summary Providers to CC ~ Discharge Summary Admission Diagnosis: Acute hypoxic respiratory failure, afib rvr, PNA, sepsis Hospital Course DATE OF ADMISSION: 03/13/25 DATE OF DISCHARGE: 03/15/25 Discharge Diagnosis\Comment: Acute hypoxic respiratory failure Community-acquired pneumonia, covering for Gram-positive and Gram-negative Severe sepsis 2/2 PNA Respiratory alkalosis Hypertensive emergency NSTEMI likely Type II 2/2 above Afib w/ RVR likely 2/2 hypoxia Chronic tobacco abuse, including currently COPD Hypertension Hyperlipidemia Class III obesity DARINEL Operations\Procedures: None Consultants: None Complications: None Condition on DC: Stable New Medications: Albuterol Sulfate (Proair Respiclick) 90 Mcg Aer.pow.ba 2 PUFFS INH Q4HPRN PRN for shortness of breath, #1 EA 0 Refills Fluticasone/Salmeterol (Advair 250-50 Diskus) 1 Each Disk.w.dev 1 PUFFS INH Q12H for 30 Days, #1 EA 0 Refills Hydralazine HCl (Hydralazine HCl) 50 Mg Tablet 1 TAB PO Q8H for 30 Days, #90 TAB 0 Refills Isosorbide Mononitrate (Isosorbide Mononitrate Er) 30 Mg Tab.er.24h 1 TAB PO DAILY for 30 Days, #30 TAB Levofloxacin (Levofloxacin) 750 Mg Tablet 750 MG PO DAILY for 10 Days, #10 TAB Diltiazem Hcl (Cardizem Sr) 60 Mg Cap.sr.12h 120 MG PO Q12H for 30 Days, #120 CAP.SR Take 2 tablets by mouth every 12 hours Metoprolol Tartrate (Metoprolol Tartrate) 50 Mg Tablet 100 MG PO BID for 30 Days, #60 TAB Continued Medications: Apixaban (Eliquis) 5 Mg Tablet 5 MG PO BID, #60 TAB Atorvastatin Calcium (Atorvastatin Calcium) 20 Mg Tablet 1 TAB PO DAILY Diclofenac Sodium (Diclofenac Sodium) 1 % Gel..gram. 2 GM TOP QID for pain Olmesartan Medoxomil (Olmesartan Medoxomil) 40 Mg Tablet 1 TAB PO DAILY Sertraline HCl (Sertraline HCl) 50 Mg Tablet 1 TAB PO DAILY Discontinued Medications: Clonidine HCl (Clonidine HCl) 0.1 Mg Tablet 1 TAB PO TID Diltiazem HCl (Diltiazem 24Hr Cd) 180 Mg Cap.er.24h 90 MG PO BID for 30 Days, #30 CAP 0 Refills Discharge Summary: History of Present Illness Heather Valerio is a 64-year-old female with a past medical history of hypertension, COPD not on home oxygen or inhaler, chronic tobacco abuse including currently, CVA, atrial fibrillation on Eliquis who presented to the ED with chief complaint of acute onset shortness of breath x 1 day. Patient also reports palpitations, headache and blurry vision. Patient denies prior KS/CAD, DVT/PE, or GIB. Patient denies chest pain, extremity weakness, slurred speech, loss of consciousness, fall, abdominal pain, n/v/d, fever, chills, dysuria. Patient is to be admitted for further workups and treatment. Hospital Course Diagnostic findings were notable for signs of severe sepsis including elevated lactic acid of 5.2mmol/L, hypoxia requiring supplemental oxygen, markedly elevated blood pressure with systolic at 237, chest x-ray revealing pulmonary vascular congestion and pneumonia, CT chest revealing pneumonia, unremarkable thyroid function panel, mildly elevated troponins, EKG revealing a-paced at 115bpm, no ST elevation/depression followed by telemetry revealing atrial fibrillation with RVR in 120s. Pertinent negative findings were no subjective symptoms of chest pain, Well's score of 1.5, V/Q scan revealing low probability of pulmonary embolism. Patient was treated with fluid resuscitation, empirical antibiotics, supplemental oxygen, bronchodilators, alissa blockers, intravenous labetalol, intravenous hydralazine followed by oral antihypertensives. Patient did not experience further complications throughout the entire hospital stay and remained clinically and hemodynamically stable. Patient was seen and examined on the day of discharge. On day of discharge, vss and labs unremarkable. Telemetry sinus in 70s on the day of discharge. Last lactic acid normalized. Preliminary blood cultures remained negative until the day of discharge. All labs, diagnostic workups, discharge plan discussed with patient in details during visit before discharge. All questions and concerns answered to the best of my professional knowledge. Patient is to be discharged with HH and to follow-up with PCP within 2 weeks. Physical Exam General: A&Ox 3, NAD, morbidly obese HEENT: Normocephalic, PERRLA Neck: Supple, trachea midline, no JVD Chest: Clear to auscultation bilaterally Cardiovascular: RRR Abdomen: Soft and nontender Extremities: No cyanosis/clubbing/or edema Central Nervous System: CN II-XII intact, no focal deficits Musculoskeletal: 5/5 strength BUE and BLE; No paraspinal muscle tenderness, no muscle spasm Skin: Warm and intact *Problems/Diagnosis: (1) Uncontrolled hypertension Status: Acute Total Time Spent on D/C: > 30 Minutes Date of Service: Mar 15, 2025 Billing Provider: PATRICK SOLOMON Common Visit Codes: 34005-YPW/OBS DISCH DAY >30min PATRICK SOLOMON Mar 15, 2025 17:13
[2025-03-16] MEDS ORDERED: isosorbide mononitrate 30mg tab.SR.24H PO SCH (08:00)
== END 2025-03-15 14:50 | disposition home or self-care (01) | DRG 871 ==
LOC: ER 08:37 → ED HOLD 11:26 → PCU 3S 14:05
PROVIDERS: ADMIT Nurse Practitioner Family; ATTEND Nurse Practitioner Family
PROC: CB121ZZ Planar Nuclear Medicine Imaging of Lungs and Bronchi using Technetium 99m (Tc-99m) (ICD-10-PCS; principal; 2025-03-13)
PROC: 5A09357 Assistance with Respiratory Ventilation, Less than 24 Consecutive Hours, Continuous Positive Airway Pressure (ICD-10-PCS; 2025-03-13)
PROC: 5A09357 Assistance with Respiratory Ventilation, Less than 24 Consecutive Hours, Continuous Positive Airway Pressure (ICD-10-PCS; 2025-03-15)
DX: A41.9 Sepsis, unspecified organism (principal); I21.A1 Myocardial infarction type 2; J18.9 Pneumonia, unspecified organism; J96.01 Acute respiratory failure with hypoxia; I16.1 Hypertensive emergency; J44.1 Chronic obstructive pulmonary disease with (acute) exacerbation; J44.0 Chronic obstructive pulmonary disease with (acute) lower respiratory infection; E87.3 Alkalosis; Z68.41 Body mass index [BMI] 40.0-44.9, adult; I48.91 Unspecified atrial fibrillation; I25.10 Atherosclerotic heart disease of native coronary artery without angina pectoris; R65.20 Severe sepsis without septic shock; G47.33 Obstructive sleep apnea (adult) (pediatric); F17.210 Nicotine dependence, cigarettes, uncomplicated; I10 Essential (primary) hypertension; E78.00 Pure hypercholesterolemia, unspecified; E66.813 Obesity, class 3; Z71.6 Tobacco abuse counseling; Z79.899 Other long term (current) drug therapy; Z91.041 Radiographic dye allergy status; Z95.5 Presence of coronary angioplasty implant and graft; Z88.8 Allergy status to other drugs, medicaments and biological substances; Z86.73 Personal history of transient ischemic attack (TIA), and cerebral infarction without residual deficits
CPT/HCPCS: 36415; 36600; 71045; 71250; 78582; 80048; 80053; 80061; 80076; 80202; 81001; 82803; 82948; 83605; 83735; 83880; 84145; 84439; 84443; 84484; 85018; 85025; 85610; 85730; 87040; 87081; 87088; 93005; 93306; 94640; 94760; 96365; 96375; 97116; 97161; 97530; 99285; A4615; A9539; A9540; G0378; J0360; J0456; J0696; J1956; J2405; J2919; J3373; J3375; J3490; J7040; J7120

== ENCOUNTER 2025-03-20 03:55 | Inpatient (IN) | payer BC ==
[2025-03-20] VITALS (12 sets, daily range): BP systolic 152–198; BP diastolic 75–108; PULSE 64–87; RESP 14–21; TEMP 97.4–97.9; O2SAT 73–98
[~2025-03-20] VITALS: Ht 167.6 cm; Wt 126.9 kg
[~2025-03-20 03:55] MED LIST changes: +ALBU90AE INH; +CARSR60C PO; +DICL100G59 TOP; -DILT-36 PO; +FLUT1DIS4 INH; +HYDR50TA46 PO; +ISOS30TA84 PO; +LEVO750T68 PO; +METO50TA16 PO; +OLME40TA18 PO; +SERT-433 PO; -VALS80TA32 PO
--- NOTE | 2025-03-20 04:08 | Physician Documentation ---
History of Present Illness ~ Chief Complaint: Shortness of Breath Stated Complaint: SOB Time Seen by MD: 04:03 Primary Medical Doctor: Kirsty Tom MD HPI Patient presents to the emergency room with chief complaint of shortness of breath. She was just discharged two days ago for COPD exacerbation. She reports compliance with her medications she states that she has stopped smoking in everybody else in the house smoking outside. No fevers. She is requiring 3 L of oxygen. She is not normally on oxygen Medication Reconciliation Allergies: Coded Allergies: iodine (Verified Allergy, Severe, facial edema, 06/28/22) bupropion HCl (Verified Adverse Reaction, Unknown, increased depression, 06/28/22) Uncoded Allergies: IV DYE, IODINE CONTAINING CONTRAST (Allergy, Severe, facial edema, 06/28/22) Scheduled Apixaban (Eliquis), 1 TAB PO Q12H, (Reported) Atorvastatin Calcium (Atorvastatin Calcium), 1 TAB PO DAILY, (Reported) Cefdinir* (Cefdinir*), 1 CAP PO Q12H Diclofenac Sodium (Diclofenac Sodium), 2 GM TOP QID, (Reported) Diltiazem Hcl SR* (Cardizem SR*), 2 CAP PO BID, (Reported) Empagliflozin (Jardiance), 1 TAB PO DAILY Fluticasone/Salmeterol (Advair 250-50 Diskus), 1 PUFFS INH Q12H, (Reported) Furosemide (Lasix), 20 MG PO DAILY Hydralazine HCl (Hydralazine HCl), 1 TAB PO Q8H, (Reported) Isosorbide Dinitrate* (Isordil*), 1 TAB PO DAILY, (Reported) Metoprolol Tartrate (Metoprolol Tartrate), 1 TAB PO Q12H, (Reported) Olmesartan Medoxomil (Olmesartan Medoxomil), 1 TAB PO DAILY, (Reported) Prednisone (Prednisone), 0 PO DAILY Sertraline HCl (Sertraline HCl), 1 TAB PO DAILY, (Reported) Spironolactone (Spironolactone), 25 MG PO DAILY Scheduled PRN Albuterol Sulfate (Proair Respiclick), 2 PUFFS INH Q4HPRN PRN for shortness of breath, (Reported) Discontinued Medications Albuterol Sulfate (Proair Respiclick), 2 PUFFS INH Q4HPRN PRN for shortness of breath Discontinued Reason: patient no longer taking Apixaban (Eliquis), 5 MG PO BID Discontinued Reason: patient no longer taking Diltiazem Hcl (Cardizem Sr), 120 MG PO Q12H Discontinued Reason: patient no longer taking Fluticasone/Salmeterol (Advair 250-50 Diskus), 1 PUFFS INH Q12H Discontinued Reason: patient no longer taking Hydralazine HCl (Hydralazine HCl), 1 TAB PO Q8H Discontinued Reason: patient no longer taking Isosorbide Mononitrate (Isosorbide Mononitrate Er), 1 TAB PO DAILY Discontinued Reason: patient no longer taking Levofloxacin (Levofloxacin), 750 MG PO DAILY Discontinued Reason: patient no longer taking Levofloxacin (Levofloxacin), 1 TAB PO DAILY, (Reported) Metoprolol Tartrate (Metoprolol Tartrate), 100 MG PO BID Discontinued Reason: patient no longer taking Past Medical History Past Medical History: Atrial Fibrillation, Coronary Artery Disease, High Cholesterol, Hypertension, COPD Past Surgical History: orthopedic surgeries Other Past Surgical History: cardiac stents Alcohol Use: None Drug Use: none Lives In: Home Review of Systems ROS All review of systems negative except as per HPI Physical Exam Vital Signs: Temperature: 98.0, Source: Oral, Heart Rate: 75, Respiratory Rate: 16, BP: 143/104, Pulse Oximetry: 85, Weight: 126.900 Oxygen Flow Rate: 0 Physical Exam General: Patient is awake, alert, oriented x4 in no acute distress . On 3 L nasal cannula Head: Normocephalic and atraumatic. Eyes: Conjunctival normal. EOMI. PERRL. ENT: Mucous membranes moist. Neck: Supple, trachea is midline. Chest: Clear to auscultation bilaterally without rales, rhonchi, or wheezes. There is no accessory muscle use or retractions. Cardiac: RRR without murmurs, gallops, or rubs. Progress Results/Orders Results/Orders Orders - SIMONE GOSS MD Culture Blood (03/20/25 04:02) Saline Lock (03/20/25 04:02) Oxygen (03/20/25 04:02) Monitor (03/20/25 04:10) Svn Treatment (03/20/25 04:10) Chest,Single View (03/20/25 04:02) Page Hospitalist (03/20/25 06:03) Fill Out Med Reconciliation (03/20/25 06:03) Electrocardiogram (03/21/25 08:00) Completed Orders - SIMONE GOSS MD Stat Ekg (03/20/25 ) Cbc/Diff (03/20/25 04:02) PBNP (03/20/25 04:02) Lacticsepsis (03/20/25 04:02) CMP (03/20/25 04:08) BMP (03/20/25 04:10) Hs Troponin I W Calculations (03/20/25 04:10) Hs Troponin I W Calculations (03/20/25 06:10) Hs Troponin I W Calculations (03/20/25 07:10) Ipratropium/Albuterol Nebule (Ipratrop/A (03/20/25 04:10) Chest,Single View (03/20/25 04:02) Procalcitonin (03/20/25 04:55) Hydralazine Inj. (Apresoline Inj.) (03/20/25 05:05) Nitroglycerin-Tridil 50mg/D5w (Tridil (N (03/20/25 05:30) Ua W/Microscopic, Cult If Ind (03/20/25 05:25) Electrocardiogram (03/21/25 08:00) Vital Signs 03/20/25 03/20/25 03/20/25 03/20/25 04:04 04:11 04:21 04:28 Temp 98.0 Pulse 75 74 72 Resp 16 24 16 16 B/P (MAP) 143/104 Pulse Ox 85 92 73 O2 Delivery Nasal Cannula* Nasal Cannula* O2 Flow Rate 0 2 3 FiO2 28 32 03/20/25 03/20/25 03/20/25 03/20/25 05:03 05:19 05:58 06:27 Pulse 72 69 Resp 24 B/P (MAP) 229/103 (145) 212/93 205/93 Pulse Ox 91 O2 Flow Rate 3.0 03/20/25 03/20/25 06:30 06:50 Pulse 77 Resp 15 15 B/P (MAP) 191/81 (117) Pulse Ox 96 O2 Flow Rate 3.0 Laboratory Tests Test 03/20/25 04:48 03/20/25 05:25 White Blood Count 11.2 H Red Blood Count 4.58 Hemoglobin 14.2 Hematocrit 41.7 Mean Corpuscular Volume 91.1 Mean Corpuscular Hemoglobin 31.1 H Mean Corpuscular Hemoglobin Concent 34.1 Red Cell Distribution Width 13.9 Platelet Count 211 Mean Platelet Volume 8.6 Neutrophils (%) (Auto) 79.7 H Lymphocytes (%) (Auto) 12.3 L Monocytes (%) (Auto) 5.6 Eosinophils (%) (Auto) 1.3 Basophils (%) (Auto) 1.1 H Neutrophils # (Auto) 9.0 H Lymphocytes # (Auto) 1.4 Monocytes # (Auto) 0.6 Eosinophils # (Auto) 0.1 Basophils # (Auto) 0.1 CBC Comment Sodium Level 139 Potassium Level 3.5 Chloride Level 103 Carbon Dioxide Level 28.3 Anion Gap 8 Blood Urea Nitrogen 11 Creatinine 0.72 Estimated GFR/1.73 m2 82 BUN/Creatinine Ratio 15.3 Glucose Level 128 H Lactic Acid Level 1.2 Calcium Level 8.7 Total Bilirubin 0.8 Aspartate Amino Transf (AST/SGOT) 25 Alanine Aminotransferase (ALT/SGPT) 53 Alkaline Phosphatase 85 Troponin I High Sensitivity 16 Pro-B-Type Natriuretic Peptide 1648 H Total Protein 7.3 Albumin 3.4 Globulin 3.9 Albumin/Globulin Ratio 0.9 L Procalcitonin < 0.05 Chemistry Comments Urine Specimen Description Non-specified Urine Color Yellow Urine Clarity Clear Urine pH 7.0 Urine Specific Bennet 1.015 Urine Protein Negative Urine Glucose (UA) Negative Urine Ketones Negative Urine Occult Blood Trace-intact Urine Nitrite Negative Urine Bilirubin Negative Urine Urobilinogen 0.2 Urine Leukocyte Esterase Negative Urine RBC 10-20 Urine WBC 0-4 Urine Squamous Epithelial Cells Moderate Urine Transitional Epithelial Cells Urine Renal Cells Few Urine Bacteria Few Urine Mucus Few Urine Culture Indicated Not ind Volume Urine Centrifuged 10 ml Urine Comment EKG/XRAY/CT/US/VASC/MRI EKG : Additional Comment EKG interpreted by myself shows time of 0408, rate 73, sinus rhythm, normal axis, no ST changes Chest X-Ray : Additional Comments Exam: CHEST,SINGLE VIEW CHEST RADIOGRAPH Indication: recent pna and sepsis Technique: 1 view Comparison: DI CHEST,SINGLE VIEW on DOS: 03/13/25, CHEST,SINGLE VIEW on DOS: 07/19/22, CHEST,SINGLE VIEW on DOS: 06/28/22 FINDINGS: Soft tissue attenuation and beam underpenetration limits assessment. Lines and Tubes: External leads. Lungs/Pleura: Persistent prominent bilateral interstitial markings throughout the mid to basilar lungs. Mild patchy qvdlh-jrfccam-hbyq-left basilar airspace disease. No large pleural effusion or pneumothorax. Right azygous fissure. Cardiomediastinum: Unchanged, upper normal size for technique. Other: No acute osseous abnormality. IMPRESSION: 1. Radiographic assessment of the chest remains limited. No significant change from prior radiograph on Persistent prominent interstitial markings with patchy abnre-obxhadu-hhmj-left basilar airspace disease. Medical Decision Making Findings Patient presents to the emergency room with chief complaint of shortness of breath. Differentials include but are not limited to COPD exacerbation, pneumonia, CHF, pulmonary embolism therefore emergent labs and imaging indicated. Patient is requiring oxygen despite breathing treatment and we will require admission. Patient's blood pressure is also very elevated although that has no evidence of end-organ damage aside from elevated BNP. Nitro drip started. Departure Admitted to Inpatient Unit: yes, to hospitalist Impression: Primary Impression: Hypoxia Additional Impression: COPD exacerbation Condition: Guarded Referrals: NO PRIMARY CARE PROVIDER (PCP) Prescriptions Spironolactone (Spironolactone) 25 Mg Tablet 25 MG PO DAILY for 30 Days, #30 TAB start spironolactone after finishing lasix for 10 days. Start date: 04/02/25 Prov: LOYDA SINHA MD 03/23/25 Empagliflozin (Jardiance) 10 Mg Tablet 1 TAB PO DAILY for 30 Days, #30 TAB 0 Refills Prov: KYRA MOLINA, ESTHELA 03/23/25 Cefdinir* (Cefdinir*) 300 Mg Capsule 1 CAP PO Q12H for 5 Days, #10 CAP Prov: KYRA MOLINA, ESTHELA 03/23/25 Prednisone (Prednisone) 10 Mg Tablet 0 PO DAILY, #20 TAB Take 3 daily x3 days 2 daily x3 days 1 daily x3 days 1/2 daily x4 days then STOP Prov: KYRA MOLINA RES 03/23/25 Furosemide (LASIX) 20 Mg Tablet 20 MG PO DAILY for 10 Days, #10 TAB Prov: KYRA MOLINA, RES 03/23/25 Signature Scribe Signature: No scribe Attestation: The note accurately reflects work and decisions made by me.Simone Goss MD 03/20/25 05:59 SIMONE GOSS MD Mar 20, 2025 04:08
--- NOTE | 2025-03-20 04:11 | ELECTROCARDIOGRAPH REPORT ---
[facility] Test Date: 2025-03-20 Test Time: 04:08:03 Pat Name: MARGARETH RAM Department: [facility] Patient ID: [id number] Room: Gender: F Study Manager: : 1960 Requested By: MARCO A CHRISTIAN Order Number: [id number] Reading MD: Measurements Intervals [place] Rate: 73 P: 23 [place]: 153 QRS: 22 QRSD: 82 T: 68 QT: 410 QTc: 452 Interpretive Statements Atrial-paced complexes Probable left atrial enlargement Please click the below link to view image of tracing.
[2025-03-20] MEDS: ipratropium/albuterol 3ml nebule NEB ONE (04:18)
--- NOTE | 2025-03-20 04:36 | RADIOLOGY REPORT ---
CHEST RADIOGRAPH Indication: recent pna and sepsis Technique: 1 view Comparison: DI CHEST,SINGLE VIEW on DOS: 03/13/25, CHEST,SINGLE VIEW on DOS: 07/19/22, CHEST,SINGLE VIEW on DOS: 06/28/22 FINDINGS: Soft tissue attenuation and beam underpenetration limits assessment. Lines and Tubes: External leads. Lungs/Pleura: Persistent prominent bilateral interstitial markings throughout the mid to basilar lungs. Mild patchy cormw-npizxjd-klgc-left basilar airspace disease. No large pleural effusion or pneumothorax. Right azygous fissure. Cardiomediastinum: Unchanged, upper normal size for technique. Other: No acute osseous abnormality. IMPRESSION: 1. Radiographic assessment of the chest remains limited. No significant change from prior radiograph on Persistent prominent interstitial markings with patchy vptpm-nraprrp-xlbs-left basilar airspace disease.
[2025-03-20 05:02] LABS: MEAN PLATELET VOLUME 8.6 FL (7.4-10.4); RED CELL DISTRIBUTION WIDTH 13.9 % (11.5-14.5)
[2025-03-20 05:19] LABS: CREATININE 0.72 MG/DL (0.40-0.90); TOTAL CARBON DIOXIDE 28.3 MMOL/L (24-32); eCRCL 74 ML/MIN; eGFR 82 ML/MIN
[2025-03-20] MEDS: hydrALAZINE 20mg/ml inj. IV ONE (05:19)
[2025-03-20 05:26] LABS: PRO BRAIN NATRIURETIC PEPTIDE 1648 PG/ML (0-125)
[2025-03-20] MEDS: nitroGLYCERIN-Tridil 50MG/D5W 250 ML IV PRN (05:58)
[2025-03-20 06:40] LABS: LEUKOCYTE ESTERASE ,URINE NEGATIVE (Neg); NITRITES, URINE NEGATIVE (Neg); OCCULT BLOOD,URINE TRACE-INTACT (Neg)
[2025-03-20 06:44] LABS: UA COLLECTION TYPE NON-SPECIFIED
[2025-03-20 06:54] LABS: MUCUS STRANDS FEW /LPF (Neg); RENAL CELLS, URINE FEW /HPF; SQUAMOUS EPITHELIAL CELL,UR MODERATE /LPF (FEW)
[2025-03-20] MEDS ORDERED: magnesium Cl slow-release 64mg tablet PO PRN (07:30)
[2025-03-20] MEDS ORDERED: ondansetron/PF 4mg/2ml inj IV PRN (07:30)
[2025-03-20] MEDS ORDERED: magnesium hydroxide 30ml (MOM) UD suspension PO PRN (07:30)
[2025-03-20] MEDS ORDERED: magnesium sulf-water 4G/100mL 100 ML IV PRN (07:30)
[2025-03-20] MEDS ORDERED: magnesium sulf-water 2g/50mL 50 ML IV PRN (07:30)
[2025-03-20] MEDS ORDERED: mag hydrox/Alum hydrox/simeth 30ml oral suspension PO PRN (07:30)
[2025-03-20] MEDS ORDERED: potassium Cl 20 mEq SR tablet PO PRN (07:30)
[2025-03-20] MEDS ORDERED: potassium Cl 40MEQ/1/2NS 520ml 520 ML IV PRN (07:30)
[2025-03-20] MEDS ORDERED: heparin, porcine 5000 units/ml vial SQ SCH (08:00)
[2025-03-20] MEDS ORDERED: non-formulary drug (Fluticasone/Salmeterol (Advair 250-50 Diskus) 1 PUFFS) INH SCH (08:00)
[2025-03-20] MEDS: K and/or MAG REPLACEMENT MC SCH (08:00)
[2025-03-20] MEDS: docusate sod 100mg capsule PO SCH (08:00)
[2025-03-20] MEDS: azithromycin/NS 500mg/250ml 250 ML IV SCH (08:17)
[2025-03-20] MEDS: diltiazem SR 60mg capsule (twice daily) PO SCH (08:20)
[2025-03-20] MEDS: isosorbide mononitrate 30mg tab.SR.24H PO SCH (08:21)
[2025-03-20 08:25] LABS: APTT 34 SECONDS (22-32); INR 1.1 INR
[2025-03-20] MEDS: vancomycin/NS 1 GM ADD-VANTAGE 250 ML IV SCH (09:41)
[2025-03-20] MEDS: piperacillin/tazo 3.375gm/50ml 50 ML IV SCH (09:41)
--- NOTE | 2025-03-20 09:52 | RADIOLOGY REPORT ---
CT Chest without intravenous contrast INDICATION: Shortness of breath TECHNIQUE: Multidetector spiral CT of the chest was performed from the lung apices to the upper abdomen. Axial, coronal and sagittal multiplanar reformats were performed. Radiation Dose : 1. Chest: CTDI volume is 18.7 mGy. Dose-length product is 653 mGy*cm The dose indicators for CT are the volume Computed Tomography (CT) Dose Index (CTDIvol) and the Dose Length Product (DLP), and are measured in units of mGy and mGy-cm, respectively. These indicators are not patient dose, but values generated from the CT scanner acquisition factors. The report includes radiation exposure data for exposures received during this examination. Comparison: DI CHEST,SINGLE VIEW on DOS: 03/20/25, CT CT CHEST on DOS: 03/13/25, DI CHEST,SINGLE VIEW on DOS: 03/13/25, CHEST,SINGLE VIEW on DOS: 07/19/22, CHEST,SINGLE VIEW on DOS: 06/28/22 Findings: Lower neck: Normal thyroid. Lungs: Increased bilateral lower lobe airspace disease, xqvjz-vsyzstf-ipsf-left. Heart/Vascular Structures: Cardiomegaly. Coronary artery calcifications. Vascular calcifications of the aorta. No pericardial effusion. Lymph Nodes: No adenopathy. Pleura: Trace bilateral pleural effusions. Musculoskeletal: No acute osseous abnormality. Soft tissues: Normal. Upper abdomen: Limited portions of the upper abdomen are unremarkable. IMPRESSION: Increased bilateral lower lobe airspace disease, ffgbn-upffjpj-foeo-left. Trace bilateral pleural effusions. Unchanged fluid overload. Radiation optimization: All CT scans at this facility use at least one of these dose optimization techniques: automated exposure control mA and/or kV adjustment per patient size (includes targeted exams where dose is matched to clinical indication) or iterative reconstruction.
--- NOTE | 2025-03-20 10:56 | HISTORY AND PHYSICAL-Residence ---
History & Physical Providers to CC Resident Creating Document: KYRA MOLINA, RES ~ History of Present Illness Primary Medical Doctor: Kirsty Tom MD Reason for Admit\Complaint: Shortness of breath History of Present Illness This is a 64-year-old female with a history of hypertension, heavy tobacco use COPD (not on home oxygen/inhaler), morbid obesity, DARINEL, hyperlipidemia, CVA, AFib on Eliquis presents to the ER with a chief complaint of shortness of breath associated with cough since three weeks. Patient states that she was admitted to the hospital a week ago for pneumonia. Patient endorses being discharged from the hospital four days ago with oral antibiotics Levaquin 750 mg p.o. daily. However her symptoms did not improve and still has cough with vijay sputum. Patient endorses being fatigued and has shortness of breath with exertion and is unable to walk for long distances. She denies associated fever, chills, chest pain but has palpitations. PCP: 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 Cardona four years ago when she was diagnosed with AFib. She is currently on Eliquis. Course during previous admission: -denies chest pain, EKG a paced at 115bpm, no ST elevation/depression, CXR pulm vascular congestion and pneumonia, Well's score 1.5, VQ scan low probability for PE, CT chest shows bibasilar consolidations ( pneumonia) -the sedation, abx vancomycin, ceftriaxone and Zithromax, steroids, bronchodilators, IV labetalol prn, IV hydralazine, clonidine, oral hydralazine, diltiazem, echo was normal -normal tsh/t4, blood cx negative, repeat lactic acid down trended. Allergies: Coded Allergies: iodine (Verified Allergy, Severe, facial edema, 06/28/22) bupropion HCl (Verified Adverse Reaction, Unknown, increased depression, 06/28/22) Uncoded Allergies: IV DYE, IODINE CONTAINING CONTRAST (Allergy, Severe, facial edema, 06/28/22) Home Medications Home Medications Active Advair 250-50 Diskus (Salmeterol Xinafoate/Fluticasone) 1 Each Disk.w.dev 1 Puffs INH Q12H 30 Days Isosorbide Mononitrate Er (Isosorbide Mononitrate) 30 Mg Tab.er.24h 1 Tab PO DAILY 30 Days Hydralazine HCl 50 Mg Tablet 1 Tab PO Q8H 30 Days Proair Respiclick (Albuterol Sulfate) 90 Mcg Aer.pow.ba 2 Puffs INH Q4HPRN PRN Cardizem Sr (Diltiazem Hcl) 60 Mg Cap.sr.12h 120 Mg PO Q12H 30 Days Take 2 tablets by mouth every 12 hours Metoprolol Tartrate 50 Mg Tablet 100 Mg PO BID 30 Days Levofloxacin 750 Mg Tablet 750 Mg PO DAILY 10 Days Eliquis (Apixaban) 5 Mg Tablet 5 Mg PO BID Reported Diclofenac Sodium 1 % Gel..gram. 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 Past Surgical History Surgical History Comment Tonsillectomy Past Social History Social History Comment Alcohol: Denies Tobacco: 40 pack year history, current smoker Illicit drug use: Denies Living situation: Lives at home with spouse Alcohol Use: None Drug Use: None Lives In: Home ROS ROS Constitutional: No fever, chills, dizziness, weakness, weight gain or loss Eyes: No pain, erythema, discharge, blurring of vision ENT: No sore throat, epistaxis, tinnitus Cardiovascular: No palpitations, syncope, lower extremity edema, paroxysmal nocturnal dyspnea Respiratory: Shortness of breath, cough, sputum production. No hemoptysis Gastrointestinal: Normal appetite. No nausea, vomiting, diarrhea, constipation, hematemesis, abdominal pain, bloating, melena or fresh blood Genitourinary: No frequency, urgency, nocturia, hematuria or dysuria Musculoskeletal: Generalized weakness and fatigue. No arthralgias or myalgias Integumentary: No change in skin, hair, nails. No swelling, bruising, abrasions Neurologic: No headache, neck pain, numbness or tingling of the extremities, weakness Psychiatric: No delusions, depression, loss of interest in normal activity or change in sleep pattern, hallucinations, suicidal ideations Endocrine: No polydipsia, polyuria, change in appetite, heat or cold intolerance, sweating, dry skin Hematological: No bleeding, petechiae, bruising Allergies: No asthma or urticaria Exam Vitals: Vital Signs Date Time Temp Pulse Resp B/P (MAP) Pulse Ox O2 Delivery O2 Flow Rate FiO2 03/20/25 10:20 62 18 165/89 (114) 96 3.0 03/20/25 04:28 Nasal Cannula* 32 03/20/25 04:04 98.0 General: General: Morbidly obese. Awake , alert, and oriented x4, resting comfortably in the bed, in no acute distress . On oxygen through nasal cannula HEENT: Large left keloid, Atraumatic, normocephalic, EOMI, anicteric sclera B; pink conjunctiva; PERRLA, normal oropharynx, moist oral and nasal mucosa. Tympanic membrane , nose , throat clear. Neck: Trachea midline. Supple, full range of motion, no JVD, bruit , hepatojugular reflex , lymphadenopathy or masses, or other lesions Cardiac: Regular rhythm, regular rate no murmurs, rubs, or gallops. Normal S1 and S2, no S3 noticed. PMI is normal. Respiratory: Decreased breath sounds bilaterally, no tachypnea; bibasilar crepitations more on the right side, no wheezing ,rub or rales, or crackles. Chest wall is symmetric and without deformity. No signs of trauma. Chest wall is nontender. No signs of respiratory distress. Resonance is normal upon percussion bilaterally. Gastrointestinal: Abdomen symmetric, non-distended, soft, non-tender, normal bowel sounds x4 quadrant, normoactive, no hepatosplenomegaly , no masses , no bruit, no flank pain bilaterally. No voluntary guarding, rebound, or rigidity. No tenderness to percussion. No pulsatile masses. Equal femoral pulses. No Reza's sign or McBurney point tenderness. Back; no CVA tenderness bilaterally, no deformities. Neck and back are without deformity as well. No tenderness noted on palpation of the spinous processes. Spinous processes are midline. Cervical, thoracic, and lumbar paraspinal muscles are not tender and are without spasm. : normal external genitalia, without lesions, swelling, masses or tenderness. Musculoskeletal: Right lower extremity compression stocking in place secondary to 2+ chronic edema Extremities, normal range of motion, non-tender, muscle strength 5/5 x 4. Negative Homans signs bilaterally on lower extremity. Distal pulses full symmetrical, no clubbing, cyanosis. 1+ edema in the left lower extremity Neurological: Speech is clear, alert, and oriented x 4. No motor or sensory deficit, deep tendon reflexes normal, cerebellar intact. Cranial nerves II-XII intact. Psych: Alert and or appropriate, normal affect. Vascular: Good distal pulses, which are equal x4; capillary refill less than 2 seconds. Skin: Warm, dry, no pallor, no rash or petechiae. Diagnostic Data Last Recorded Lab Results: 03/20/25 0448 03/20/25 0749 Diagnostic Data: Laboratory Tests Test 03/20/25 07:49 Prothrombin Time 11.5 SECONDS (9.0-12.0) INR International Normalized Ratio 1.1 INR Activated Partial Thromboplast Time 34 SECONDS (22-32) H D-Dimer 0.89 MG/L FEU (0-0.50) H D-Dimer Comment Coagulation Comments Advance Care Planning Advanced Care plannin - 30 Minutes (I spent a total of 17 minutes on reviewing various resuscitative measures/ ACP with the patient at the time of admission. The patient has decided on a full code status) Additional Plan Acute hypoxic respiratory failure secondary to below Worsening Community-acquired pneumonia, covering for Gram-positive and Gram- negative and atypical Failed outpatient antibiotic therapy Leukocytosis 2/2 PNA Acute on chronic COPD exacerbation Acute on chronic CHF with preserved ejection fraction Chest x-ray shows No significant change from prior radiograph on , Persistent prominent interstitial markings with patchy einkn-fuhfdrl-ynoj-left basilar airspace disease. CT chest shows Increased bilateral lower lobe airspace disease, fvhga-yohesge-gxym-left. Trace bilateral pleural effusions. Unchanged fluid overload. Patient failed outpatient antibiotic therapy with Levaquin 750 mg for five days. Started on broad-spectrum antibiotics vancomycin, Zosyn, azithromycin to cover MRSA, Pseudomonas and atypicals organisms. Lactic acid, procalcitonin, ESR WNL. Slightly elevated CRP of 2 and white count of 11.2. Follow up with blood cultures and sputum cultures. D-dimer is slightly elevated at 0.89. V/Q scan done five days ago showed low probability of PE. Low Wells score of 1.5. Patient's shortness of breath is likely from pneumonia and CHF exacerbation given low probability of PE on V/Q scan and low Wells score, CTA not recommended due to contrast allergy. Started on Solu-Medrol 125 mg followed by Solu-Medrol 40 mg q.6 hours, duo nebs q.4 scheduled and albuterol q.2h p.r.n., incentive spirometry. Pro BNP elevated at 1648. Fluid overload present on CT chest. Started on IV Lasix 20 mg b.i.d. Metabolic alkalosis Bicarbonate 25. ABG ordered. Follow up Hypertensive urgency History of atrial fibrillation without RVR Patient was initially on nitroglycerin drip which was now discontinued. Restarted home blood pressure medications and increase the hydralazine the dose from 50 mg Q8h to 100 mg [id number]. Patient takes metoprolol 100 mg b.i.d., diltiazem extended release 120 mg and Eliquis 5 mg b.i.d. for AFib. Heart rate is currently well controlled. Continue telemetry monitoring Heart failure with preserved ejection fraction Obstructive sleep apnea, Class III obesity Pulmonary hypertension secondary to DARINEL Cor pulmonale Moderate MR Moderate TR Continue Lasix, CPAP. Strongly advised the patient lose weight gradually. Chronic tobacco abuse, including currently I spent 12 minutes discussing smoking cessation with the patient including the risk continued smoking with the patient including: lung cancer, stroke, heart attack, poor wound healing, increase in facial drinking, risk of MRSA skin infections. 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 I have asked the patient to consider nicotine patch at this time. Code Status: Full code DVT Prophylaxis: Heparin Analgesia/Sedation: [place] p.r.n. Lines/Tubes: PIV Gi Prophylaxis: None Nutrition: Regular diet PT: Yes Prognosis: Guarded Disposition: Admit to PCU with telemetry monitoring Kyra Law MD Internal Medicine Resident PGY-2 Date of Service: Mar 20, 2025 Billing Provider: LOYDA SINHA MD Common Visit Codes: 80153-[id number] INP/OBS CARE (HIGH) Secondary Visit Codes: [id number] CARE PLAN 30 MINUTES KYRA MOLINA, RES Mar 20, 2025 10:56 LOYDA SINHA MD Mar 24, 2025 15:53
[2025-03-20] MEDS: furosemide 10 MG/1 ML 10ml inj IV SCH (11:48)
[2025-03-20] MEDS ORDERED: albuterol 2.5 MG/3 ML nebule NEB PRN (14:00)
[2025-03-20] MEDS ORDERED: albuterol 2.5 MG/3 ML nebule NEB SCH (14:00)
[2025-03-20] MEDS: ipratropium/albuterol 3ml nebule NEB SCH (14:27)
[2025-03-20] MEDS: methylPREDNISolone sod succ/PF 40mg inj. IV SCH (16:53)
[2025-03-20] MEDS: budesonide 0.5mg/2ml UD nebule IH SCH (19:58)
[2025-03-20] MEDS ORDERED: CARSR60C PO (23:42)
[2025-03-20] MEDS ORDERED: FLUT1DIS20 INH (23:42)
[2025-03-20] MEDS ORDERED: HYDR50TA46 PO (23:42)
[2025-03-20] MEDS ORDERED: LEVO750T68 PO (23:42)
[2025-03-20] MEDS ORDERED: ALBU90AE INH (23:42)
[2025-03-20] MEDS ORDERED: METO50TA16 PO (23:42)
[2025-03-20] MEDS ORDERED: ISOS30TA9 PO (23:42)
[2025-03-20] MEDS ORDERED: APIX5TAB3 PO (23:42)
[2025-03-21] VITALS (15 sets, daily range): BP systolic 126–162; BP diastolic 61–83; PULSE 62–95; RESP 11–22; TEMP 97.2–97.7; O2SAT 93–98
--- NOTE | 2025-03-21 05:26 | CARDIOLOGY REPORT ---
APPROVED REPORT EXAM: Limited 2D, Doppler, and color-flow Echocardiogram. Patient Location: ED4 Blood Pressure: 191/81 mmHg Heart Rate: 62 bpm Rhythm: NSR Indications SOB COPD AFIB CAD Hx Stents Pro BNP 1648 [employer] is Elvira Cardona MD Previous echo 03/13/25 [facility] 65-70% EF ; tr MR TR ; RVSP 35 mmHG 2D Dimensions IVC 22.60 mm Mitral Valve MV Peak Gr. 10 mmHg MV PHT 40 ms MVA (PHT) 5.50 cm2 MV VMax 158.6 cm/s Tricuspid Valve TR P. Velocity 345 cm/s RAP ESTIMATE 15 mmHg TR Peak Gr. 48 mmHg RVSP 63 mmHg LEFT VENTRICLE LV appears normal in size with moderate concentric hypertrophy. Overall systolic function appears normal. LVEF is 70%. RIGHT VENTRICLE RV appears normal in size and contractility. RVSP is estimated at 63 mmHG. MITRAL VALVE MV is thickened with mild annular calcification and no stenosis. Moderate mitral regurgitation. TRICUSPID VALVE The tricuspid valve is normal in structure. Moderate tricuspid regurgitation. GREAT VESSELS IVC is dilated and collapses greater than 50% with inspiration. PERICARDIUM Trivial anterior pericardial effusion with no evidence of hemodyamic compromise. Pleural effusion. Other Information Study Quality: Adequate Conclusion LV appears normal in size with moderate concentric hypertrophy. Overall systolic function appears normal. LVEF is 70%. RV appears normal in size and contractility. RVSP is estimated at 63 mmHG. MV is thickened with mild annular calcification and no stenosis. Moderate mitral regurgitation. The tricuspid valve is normal in structure. Moderate tricuspid regurgitation. Trivial anterior pericardial effusion with no evidence of hemodyamic compromise.
[2025-03-21 06:46] LABS: MEAN PLATELET VOLUME 8.8 FL (7.4-10.4); RED CELL DISTRIBUTION WIDTH 13.9 % (11.5-14.5)
[2025-03-21 06:56] LABS: CREATININE 0.82 MG/DL (0.40-0.90); TOTAL CARBON DIOXIDE 29.3 MMOL/L (24-32); eCRCL 65 ML/MIN; eGFR 70 ML/MIN
--- NOTE | 2025-03-21 08:23 | ELECTROCARDIOGRAPH REPORT ---
[facility] Test Date: 2025-03-21 Test Time: 08:22:00 Pat Name: MARGARETH RAM Department: [address] Patient ID: [id number] Room: [place] [address] A Gender: F Strategy Consultant: SHWETHA : 1960 Requested By: MARCO A CHRISTIAN Order Number: [id number] Reading MD: Dr. Mayco Cardona Measurements Intervals [place] Rate: 72 P: 42 NC: 154 QRS: 38 QRSD: 114 T: 81 QT: 463 QTc: 507 Interpretive Statements Sinus rhythm Atrial premature complexes Probable left atrial enlargement Borderline intraventricular conduction delay Prolonged QT interval Electronically Signed On 03-23-2025 7:12:[address] Mayco Cardona Please click the below link to view image of tracing.
[2025-03-21] MEDS: ipratropium/albuterol 3ml nebule NEB SCH (09:04)
[2025-03-21] MEDS: VANCOMYCIN LEVEL IV ONE (09:20)
[2025-03-21] MEDS: potassium Cl 20 mEq SR tablet PO PRN (09:20)
[2025-03-21] MEDS: HYDROcodone/acetaminophen 5mg/325mg tablet PO PRN (12:19)
--- NOTE | 2025-03-21 16:46 | PROGRESS NOTE- Residence ---
Progress Note - Resident Providers to CC Resident Creating Document: THUY TILLMAN, ESTHELA CC: KARELY CHÁVEZ Mazin DO ~ Antibiotic Timeout Antibiotic Ordered?: Yes Subjective Patient was seen and examined at bedside; she did state she feels slightly better than before but continues to have discomfort on moving around Objective Vital Signs Date Time Temp Pulse Resp B/P (MAP) Pulse Ox O2 Delivery O2 Flow Rate FiO2 03/21/25 15:56 85 17 Nasal Cannula 2.0 03/21/25 15:51 97 21 03/21/25 02:00 97.4 162/80 (107) Result Diagram: 03/21/2558 03/21/2558 General: Morbidly obese. Awake , alert, and oriented x4, resting comfortably in the bed, in no acute distress . On oxygen through nasal cannula HEENT: Large left keloid, Atraumatic, normocephalic, EOMI, anicteric sclera B; pink conjunctiva; PERRLA, normal oropharynx, moist oral and nasal mucosa. Tympanic membrane , nose , throat clear. Neck: Trachea midline. Supple, full range of motion, no JVD, bruit , hepatojugular reflex , lymphadenopathy or masses, or other lesions Cardiac: Regular rhythm, regular rate no murmurs, rubs, or gallops. Normal S1 and S2, no S3 noticed. PMI is normal. Respiratory: Decreased breath sounds bilaterally, no tachypnea, no wheezing ,rub or rales, or crackles. Chest wall is symmetric and without deformity. No signs of trauma. Chest wall is nontender. No signs of respiratory distress. Resonance is normal upon percussion bilaterally. Gastrointestinal: Abdomen symmetric, non-distended, soft, non-tender, normal bowel sounds x4 quadrant, normoactive, no hepatosplenomegaly , no masses , no bruit, no flank pain bilaterally. No voluntary guarding, rebound, or rigidity. No tenderness to percussion. No pulsatile masses. Equal femoral pulses. No Reza's sign or McBurney point tenderness. Back; no CVA tenderness bilaterally, no deformities. Neck and back are without deformity as well. No tenderness noted on palpation of the spinous processes. Spinous processes are midline. Cervical, thoracic, and lumbar paraspinal muscles are not tender and are without spasm. : normal external genitalia, without lesions, swelling, masses or tenderness. Musculoskeletal: Right lower extremity compression stocking in place secondary to 2+ chronic edema Extremities, normal range of motion, non-tender, muscle strength 5/5 x 4. Negative Homans signs bilaterally on lower extremity. Distal pulses full symmetrical, no clubbing, cyanosis. 1+ edema in the left lower extremity Neurological: Speech is clear, alert, and oriented x 4. No motor or sensory deficit, deep tendon reflexes normal, cerebellar intact. Cranial nerves II-XII intact. Psych: Alert and or appropriate, normal affect. Vascular: Good distal pulses, which are equal x4; capillary refill less than 2 seconds. Skin: Warm, dry, no pallor, no rash or petechiae. Coagulation Studies Laboratory Tests Test 03/20/25 07:49 Prothrombin Time 11.5 SECONDS (9.0-12.0) INR International Normalized Ratio 1.1 INR Activated Partial Thromboplast Time 34 SECONDS (22-32) H D-Dimer 0.89 MG/L FEU (0-0.50) H D-Dimer Comment Coagulation Comments Advance Care Planning Advanced Care plannin - 30 Minutes Assessment Assessment This is a 64-year-old female with a history of hypertension, heavy tobacco use COPD (not on home oxygen/inhaler), morbid obesity, DARINEL, hyperlipidemia, CVA, AFib on Eliquis presents to the ER with a chief complaint of shortness of breath associated with cough since three weeks. Patient is a readmit from a week ago with the same symptoms Plan Plan Acute hypoxic respiratory failure secondary to below Worsening Community-acquired pneumonia, covering for Gram-positive and Gram- negative and atypical Failed outpatient antibiotic therapy Levaquin Leukocytosis 2/2 PNA Acute on chronic COPD exacerbation Acute on chronic CHF with preserved ejection fraction Chest x-ray shows No significant change from prior radiograph on , Persistent prominent interstitial markings with patchy rgfrx-xzolyex-ffww-left basilar airspace disease. CT chest shows Increased bilateral lower lobe airspace disease, qklfx-gyadqlx-jmqy-left. Trace bilateral pleural effusions WBC back to its normal range; D-dimer is slightly elevated at 0.89. V/Q scan done five days ago showed low probability of PE. Low Wells score of 1.5. SOB 2/2 pneumonia and CHF exacerbation- elevated right-sided heart pressures 63 mm Hg (37 mm Hg one-week ago) CTA not recommended due to contrast allergy. Pro BNP elevated at 1648. Fluid overload present on CT chest. Plan Continue antibiotics vancomycin, Zosyn, azithromycin to cover MRSA, Pseudomonas and atypicals organisms. Continue Solu-Medrol 40 mg q.6 hours, duo nebs q.4 scheduled and albuterol q.2h p.r.n., incentive spirometry. Continue IV Lasix 20 mg b.i.d. Continue patient's BiPAP/CPAP V/Q scan Hypertensive urgency History of atrial fibrillation without RVR Patient was initially on nitroglycerin drip which was now discontinued. Restarted home blood pressure medications and increase the hydralazine the dose from 50 mg Q8h to 100 mg [id number]. Patient takes metoprolol 100 mg b.i.d., diltiazem extended release 120 mg and Eliquis 5 mg b.i.d. for AFib. Heart rate is currently well controlled. Continue telemetry monitoring Heart failure with preserved ejection fraction Obstructive sleep apnea, Class III obesity Pulmonary hypertension secondary to DARINEL- with a marked up trend in right-sided heart pressures in one-week timeframe eval for PE Cor pulmonale Moderate MR Moderate TR Continue Lasix, CPAP. Strongly advised the patient lose weight gradually. Active tobacco abuse Patient is still hesitant about using a nicotine patch Code Status: Full code DVT Prophylaxis: Heparin Analgesia/Sedation: [place] p.r.n. Lines/Tubes: PIV Gi Prophylaxis: None Nutrition: Regular diet PT: Yes Prognosis: Guarded Disposition: Admit to PCU with telemetry monitoring Thuy Tillman MD Internal Medicine Resident PGY-1 Date of Service: Mar 21, 2025 Billing Provider: KARELY CHÁVEZ DO Common Visit Codes: [id number] INP/OBS CARE(HIGH) THUY TILLMAN, RES Mar 21, 2025 16:46 KARELY CHÁVEZ DO Mar 21, 2025 17:25
[2025-03-22] VITALS (15 sets, daily range): BP systolic 119–173; BP diastolic 73–106; PULSE 69–106; RESP 12–19; TEMP 97.6–98.1; O2SAT 94–98
[2025-03-22 06:36] LABS: MEAN PLATELET VOLUME 8.7 FL (7.4-10.4); RED CELL DISTRIBUTION WIDTH 14.1 % (11.5-14.5)
[2025-03-22 06:57] LABS: CREATININE 0.86 MG/DL (0.40-0.90); TOTAL CARBON DIOXIDE 29.9 MMOL/L (24-32); eCRCL 62 ML/MIN; eGFR 66 ML/MIN
--- NOTE | 2025-03-22 07:13 | PROGRESS NOTE- Residence ---
Progress Note - Resident Providers to CC ~ Subjective Patient was seen and examined at bedside; she did state she feels slightly better than before but continues to have discomfort on moving around Objective Vital Signs Date Time Temp Pulse Resp B/P (MAP) Pulse Ox O2 Delivery O2 Flow Rate FiO2 03/22/25 02:00 98.0 100 15 155/89 (111) 96 Nasal Cannula 3.0 03/21/25 20:01 21 Result Diagram: 03/22/2553203/22/25532 General: Morbidly obese. Awake , alert, and oriented x4, resting comfortably in the bed, in no acute distress . On oxygen through nasal cannula HEENT: Large left keloid, Atraumatic, normocephalic, EOMI, anicteric sclera B; pink conjunctiva; PERRLA, normal oropharynx, moist oral and nasal mucosa. Tympanic membrane , nose , throat clear. Neck: Trachea midline. Supple, full range of motion, no JVD, bruit , hepatojugular reflex , lymphadenopathy or masses, or other lesions Cardiac: Regular rhythm, regular rate no murmurs, rubs, or gallops. Normal S1 and S2, no S3 noticed. PMI is normal. Respiratory: Decreased breath sounds bilaterally, no tachypnea, no wheezing ,rub or rales, or crackles. Chest wall is symmetric and without deformity. No signs of trauma. Chest wall is nontender. No signs of respiratory distress. Resonance is normal upon percussion bilaterally. Gastrointestinal: Abdomen symmetric, non-distended, soft, non-tender, normal bowel sounds x4 quadrant, normoactive, no hepatosplenomegaly , no masses , no bruit, no flank pain bilaterally. No voluntary guarding, rebound, or rigidity. No tenderness to percussion. No pulsatile masses. Equal femoral pulses. No Reza's sign or McBurney point tenderness. Back; no CVA tenderness bilaterally, no deformities. Neck and back are without deformity as well. No tenderness noted on palpation of the spinous processes. Spinous processes are midline. Cervical, thoracic, and lumbar paraspinal muscles are not tender and are without spasm. : normal external genitalia, without lesions, swelling, masses or tenderness. Musculoskeletal: Right lower extremity compression stocking in place secondary to 2+ chronic edema Extremities, normal range of motion, non-tender, muscle strength 5/5 x 4. Negative Homans signs bilaterally on lower extremity. Distal pulses full symmetrical, no clubbing, cyanosis. 1+ edema in the left lower extremity Neurological: Speech is clear, alert, and oriented x 4. No motor or sensory deficit, deep tendon reflexes normal, cerebellar intact. Cranial nerves II-XII intact. Psych: Alert and or appropriate, normal affect. Vascular: Good distal pulses, which are equal x4; capillary refill less than 2 seconds. Skin: Warm, dry, no pallor, no rash or petechiae. Coagulation Studies Laboratory Tests Test 03/20/25 07:49 Prothrombin Time 11.5 SECONDS (9.0-12.0) INR International Normalized Ratio 1.1 INR Activated Partial Thromboplast Time 34 SECONDS (22-32) H D-Dimer 0.89 MG/L FEU (0-0.50) H D-Dimer Comment Coagulation Comments Assessment Assessment This is a 64-year-old female with a history of hypertension, heavy tobacco use COPD (not on home oxygen/inhaler), morbid obesity, DARINEL, hyperlipidemia, CVA, AFib on Eliquis presents to the ER with a chief complaint of shortness of breath associated with cough since three weeks. Patient is a readmit from a week ago with the same symptoms Plan Plan Acute hypoxic respiratory failure secondary to below Worsening Community-acquired pneumonia, covering for Gram-positive and Gram- negative and atypical Failed outpatient antibiotic therapy Levaquin Leukocytosis 2/2 PNA Acute on chronic COPD exacerbation Acute on chronic CHF with preserved ejection fraction Chest x-ray shows No significant change from prior radiograph on , Persistent prominent interstitial markings with patchy ebltt-tszykub-nmui-left basilar airspace disease. CT chest shows Increased bilateral lower lobe airspace disease, begcz-ollusbh-bvce-left. Trace bilateral pleural effusions WBC back to its normal range; D-dimer is slightly elevated at 0.89. V/Q scan done five days ago showed low probability of PE. Low Wells score of 1.5. SOB 2/2 pneumonia and CHF exacerbation- elevated right-sided heart pressures 63 mm Hg (37 mm Hg one-week ago) CTA not recommended due to contrast allergy. Pro BNP elevated at 1648. Fluid overload present on CT chest. Plan Continue antibiotics vancomycin, Zosyn, azithromycin to cover MRSA, Pseudomonas and atypicals organisms. Continue Solu-Medrol 40 mg q.6 hours, duo nebs q.4 scheduled and albuterol q.2h p.r.n., incentive spirometry. Continue IV Lasix 20 mg b.i.d. Continue patient's BiPAP/CPAP V/Q scan Hypertensive urgency History of atrial fibrillation without RVR Patient was initially on nitroglycerin drip which was now discontinued. Restarted home blood pressure medications and increase the hydralazine the dose from 50 mg Q8h to 100 mg [id number]. Patient takes metoprolol 100 mg b.i.d., diltiazem extended release 120 mg and Eliquis 5 mg b.i.d. for AFib. Heart rate is currently well controlled. Continue telemetry monitoring Heart failure with preserved ejection fraction Obstructive sleep apnea, Class III obesity Pulmonary hypertension secondary to DARINEL- with a marked up trend in right-sided heart pressures in one-week timeframe eval for PE Cor pulmonale Moderate MR Moderate TR Continue Lasix, CPAP. Strongly advised the patient lose weight gradually. Active tobacco abuse Patient is still hesitant about using a nicotine patch Leukocytosis, possibly reactive Secondary to steroid usage Code Status: Full code DVT Prophylaxis: Heparin Analgesia/Sedation: [place] p.r.n. Lines/Tubes: PIV Gi Prophylaxis: None Nutrition: Regular diet PT: Yes Prognosis: Guarded Disposition: Admit to PCU with telemetry monitoring Vanesa Tillman MD Internal Medicine Resident PGY-1 VANESA TILLMAN, RES Mar 22, 2025 07:12
--- NOTE | 2025-03-22 11:33 | PROGRESS NOTE- Residence ---
Progress Note - Resident Providers to CC Resident Creating Document: THUY TILLMAN RES CC: ENEELISABETHKARELY Mazin DO ~ Antibiotic Timeout Antibiotic Ordered?: Yes Subjective Patient was seen and examined at bedside; she feels much better compared to the previous two days; patient had no other acute overnight symptoms. She was resting comfortably in bed Objective Vital Signs Date Time Temp Pulse Resp B/P (MAP) Pulse Ox O2 Delivery O2 Flow Rate FiO2 03/22/25 09:23 85 130/73 (92) 03/22/25 08:00 14 94 Room Air 03/22/25 07:28 0 21 03/22/25 06:00 98.1 Result Diagram: 03/22/2553203/22/25532 General: Morbidly obese. Awake , alert, and oriented x4, resting comfortably in the bed, in no acute distress . On oxygen through nasal cannula HEENT: Large left keloid, Atraumatic, normocephalic, EOMI, anicteric sclera B; pink conjunctiva; PERRLA, normal oropharynx, moist oral and nasal mucosa. Tympanic membrane , nose , throat clear. Neck: Trachea midline. Supple, full range of motion, no JVD, bruit , hepatojugular reflex , lymphadenopathy or masses, or other lesions Cardiac: Regular rhythm, regular rate no murmurs, rubs, or gallops. Normal S1 and S2, no S3 noticed. PMI is normal. Respiratory: Decreased breath sounds bilaterally, no tachypnea, no wheezing ,rub or rales, or crackles. Chest wall is symmetric and without deformity. No signs of trauma. Chest wall is nontender. No signs of respiratory distress. Resonance is normal upon percussion bilaterally. Gastrointestinal: Abdomen symmetric, non-distended, soft, non-tender, normal bowel sounds x4 quadrant, normoactive, no hepatosplenomegaly , no masses , no bruit, no flank pain bilaterally. No voluntary guarding, rebound, or rigidity. No tenderness to percussion. No pulsatile masses. Equal femoral pulses. No Reza's sign or McBurney point tenderness. Back; no CVA tenderness bilaterally, no deformities. Neck and back are without deformity as well. No tenderness noted on palpation of the spinous processes. Spinous processes are midline. Cervical, thoracic, and lumbar paraspinal muscles are not tender and are without spasm. : normal external genitalia, without lesions, swelling, masses or tenderness. Musculoskeletal: Right lower extremity compression stocking in place secondary to 2+ chronic edema Extremities, normal range of motion, non-tender, muscle strength 5/5 x 4. Negative Homans signs bilaterally on lower extremity. Distal pulses full symmetrical, no clubbing, cyanosis. 1+ edema in the left lower extremity Neurological: Speech is clear, alert, and oriented x 4. No motor or sensory deficit, deep tendon reflexes normal, cerebellar intact. Cranial nerves II-XII intact. Psych: Alert and or appropriate, normal affect. Vascular: Good distal pulses, which are equal x4; capillary refill less than 2 seconds. Skin: Warm, dry, no pallor, no rash or petechiae. Coagulation Studies Laboratory Tests Test 03/20/25 07:49 Prothrombin Time 11.5 SECONDS (9.0-12.0) INR International Normalized Ratio 1.1 INR Activated Partial Thromboplast Time 34 SECONDS (22-32) H D-Dimer 0.89 MG/L FEU (0-0.50) H D-Dimer Comment Coagulation Comments Advance Care Planning Advanced Care plannin - 30 Minutes Assessment Assessment This is a 64-year-old female with a history of hypertension, heavy tobacco use COPD (not on home oxygen/inhaler), morbid obesity, DARINEL, hyperlipidemia, CVA, AFib on Eliquis presents to the ER with a chief complaint of shortness of breath associated with cough since three weeks. Patient is a readmit from a week ago with the same symptoms Plan Plan Acute hypoxic respiratory failure secondary to below Worsening Community-acquired pneumonia, covering for Gram-positive and Gram- negative and atypical Failed outpatient antibiotic therapy Levaquin Leukocytosis 2/2 PNA Acute on chronic COPD exacerbation Acute on chronic CHF with preserved ejection fraction Chest x-ray shows No significant change from prior radiograph on , Persistent prominent interstitial markings with patchy fpwtx-vnrtprq-uugw-left basilar airspace disease. CT chest shows Increased bilateral lower lobe airspace disease, pgtee-ceoonfb-badx-left. Trace bilateral pleural effusions WBC back to its normal range; D-dimer is slightly elevated at 0.89. V/Q scan done five days ago showed low probability of PE. Low Wells score of 1.5. SOB 2/2 pneumonia and CHF exacerbation- elevated right-sided heart pressures 63 mm Hg (37 mm Hg one-week ago) CTA not recommended due to contrast allergy. Ordered a CT scan to rule out any PE or other acute causes; CT chest was negative; ordered repeat V/Q scan Plan Continue antibiotics vancomycin, Zosyn, azithromycin to cover MRSA, Pseudomonas and atypicals organisms. Continue Solu-Medrol 40 mg q.6 hours, duo nebs q.4 scheduled and albuterol q.2h p.r.n., incentive spirometry. Continue IV Lasix 20 mg b.i.d. Continue patient's BiPAP/CPAP Follow up with V/Q scan Hypertensive urgency History of atrial fibrillation without RVR Restarted home blood pressure medications and increase the hydralazine the dose from 50 mg Q8h to 100 mg [id number]. Patient takes metoprolol 100 mg b.i.d., diltiazem extended release 120 mg and Eliquis 5 mg b.i.d. for AFib. Heart rate is currently well controlled. Blood pressure control was significantly improved Continue telemetry monitoring Heart failure with preserved ejection fraction Obstructive sleep apnea, Class III obesity Pulmonary hypertension secondary to DARINEL- with a marked up trend in right-sided heart pressures in one-week timeframe eval for PE Cor pulmonale Moderate MR Moderate TR Continue Lasix, CPAP. Strongly advised the patient lose weight gradually. Active tobacco abuse Patient is still hesitant about using a nicotine patch Leukocytosis, possibly reactive Secondary to steroid usage Code Status: Full code DVT Prophylaxis: Heparin Analgesia/Sedation: [place] p.r.n. Lines/Tubes: PIV Gi Prophylaxis: None Nutrition: Regular diet PT: Yes Prognosis: Guarded Disposition: We will continue to monitor the patient today, follow up with repeat V/Q scan; anticipate discharge tomorrow Thuy Tillman MD Internal Medicine Resident PGY-1 Date of Service: Mar 22, 2025 Billing Provider: KARELY CHÁVEZ DO Common Visit Codes: [id number] INP/OBS CARE(HIGH) HTUY TILLMAN, RES Mar 22, 2025 11:33 KARELY CHÁVEZ DO Mar 22, 2025 14:03
[2025-03-22] MEDS ORDERED: morphine 4 MG/ML inj SYRINge IV PRN (16:20)
[2025-03-23] VITALS (10 sets, daily range): BP systolic 109–172; BP diastolic 65–108; PULSE 55–89; RESP 10–20; TEMP 96.4–97.9; O2SAT 93–97
[2025-03-23 06:09] LABS: MEAN PLATELET VOLUME 8.6 FL (7.4-10.4); RED CELL DISTRIBUTION WIDTH 14.5 % (11.5-14.5)
[2025-03-23 06:47] LABS: CREATININE 0.91 MG/DL (0.40-0.90); TOTAL CARBON DIOXIDE 29.6 MMOL/L (24-32); eCRCL 58 ML/MIN; eGFR 62 ML/MIN
[2025-03-23] MEDS ORDERED: PRED10TA23 PO (13:41)
[2025-03-23] MEDS ORDERED: EMPA10TA PO (13:41)
[2025-03-23] MEDS ORDERED: FURO-150 PO (13:41)
[2025-03-23] MEDS ORDERED: CEFD300C3 PO (13:41)
--- NOTE | 2025-03-23 13:45 | RADIOLOGY REPORT ---
NUCLEAR MEDICINE VENTILATION/PERFUSION LUNG SCAN. INDICATION: sob COMPARISON: CT CT CHEST on DOS: 03/20/25, CT CT CHEST on DOS: 03/13/25, NM NM LUNGS on DOS: 03/13/25, CHEST,SINGLE VIEW on DOS: 07/19/22, CHEST,SINGLE VIEW on DOS: 06/28/22 TECHNIQUE: Following intravenous demonstration of 4.95 millicuries of technetium 99m MAA, and inhalation of 37.3 mCi of Tc 99m DTPA scintigrams were obtained in multiple projections of the lungs. FINDINGS: There is normal uptake of radionuclide on both the ventilation and perfusion portions of the examination. No mismatched perfusion defects are demonstrated. Uptake is normally homogeneous. IMPRESSION: Low probability for PE.
[2025-03-23] MEDS ORDERED: SPIR25TA5 PO (14:31)
--- NOTE | 2025-03-23 18:32 | DISCHARGE SUMMARY-Residence ---
Discharge Summary Providers to CC Resident Creating Document: KYRA MOLINA DOROTHY, RES ~ Discharge Summary Admission Diagnosis: hypertensive urgency,copd exaberation Hospital Course DATE OF ADMISSION: 03/20/2025 DATE OF DISCHARGE: 03/23/2025 Discharge Diagnosis\Comment: Acute hypoxic respiratory failure secondary to below Worsening Community-acquired pneumonia, covering for Gram-positive and Gram- negative and atypical Failed outpatient antibiotic therapy Levaquin Leukocytosis 2/2 PNA Acute on chronic COPD exacerbation Acute on chronic CHF with preserved ejection fraction Hypertensive urgency History of atrial fibrillation without RVR Heart failure with preserved ejection fraction Obstructive sleep apnea, Class III obesity Pulmonary hypertension secondary to DARINEL Cor pulmonale Moderate MR Moderate TR Active tobacco abuse Leukocytosis, possibly reactive Operations\Procedures: None Consultants: None Complications: None Condition on DC: Stable New Medications: Cefdinir* (Cefdinir*) 300 Mg Capsule 1 CAP PO Q12H for 5 Days, #10 CAP Empagliflozin (Jardiance) 10 Mg Tablet 1 TAB PO DAILY for 30 Days, #30 TAB 0 Refills Furosemide (Lasix) 20 Mg Tablet 20 MG PO DAILY for 10 Days, #10 TAB Prednisone (Prednisone) 10 Mg Tablet 0 PO DAILY, #20 TAB Take 3 daily x3 days 2 daily x3 days 1 daily x3 days 1/2 daily x4 days then STOP Spironolactone (Spironolactone) 25 Mg Tablet 25 MG PO DAILY for 30 Days, #30 TAB start spironolactone after finishing lasix for 10 days. Start date: 04/02/25 Continued Medications: Albuterol Sulfate (Proair Respiclick) 90 Mcg Aer.pow.ba 2 PUFFS INH Q4HPRN PRN for shortness of breath, #1 EA 0 Refills Apixaban (Eliquis) 5 Mg Tablet 1 TAB PO Q12H for 30 Days, #60 TAB 0 Refills Atorvastatin Calcium (Atorvastatin Calcium) 20 Mg Tablet 1 TAB PO DAILY Diclofenac Sodium (Diclofenac Sodium) 1 % Gel..gram. 2 GM TOP QID for pain Diltiazem Hcl SR* (Cardizem SR*) 60 Mg Cap.sr.12h 2 CAP PO BID for 30 Days, CAP Fluticasone/Salmeterol (Advair 250-50 Diskus) 1 Each Disk.w.dev 1 PUFFS INH Q12H for 30 Days, #1 INHALER 0 Refills Hydralazine HCl (Hydralazine HCl) 50 Mg Tablet 1 TAB PO Q8H for 30 Days, #90 TAB 0 Refills Isosorbide Dinitrate* (Isordil*) 30 Mg Tablet 1 TAB PO DAILY for chest pain for 30 Days, #30 TAB Metoprolol Tartrate (Metoprolol Tartrate) 50 Mg Tablet 1 TAB PO Q12H for 30 Days, #60 TAB Olmesartan Medoxomil (Olmesartan Medoxomil) 40 Mg Tablet 1 TAB PO DAILY Sertraline HCl (Sertraline HCl) 50 Mg Tablet 1 TAB PO DAILY Discontinued Medications: Levofloxacin (Levofloxacin) 750 Mg Tablet 1 TAB PO DAILY for 10 Days, #10 TAB Discharge Summary: History of Present Illness: This is a 64-year-old female with a history of hypertension, heavy tobacco use COPD (not on home oxygen/inhaler), morbid obesity, DARINEL, hyperlipidemia, CVA, AFib on Eliquis presents to the ER with a chief complaint of shortness of breath associated with cough since three weeks. Patient states that she was admitted to the hospital a week ago for pneumonia. Patient endorses being discharged from the hospital four days ago with oral antibiotics Levaquin 750 mg p.o. daily. However her symptoms did not improve and still has cough with vijay sputum. Patient endorses being fatigued and has shortness of breath with exertion and is unable to walk for long distances. She denies associated fever, chills, chest pain but has palpitations. PCP: [facility] Document Analyst: Patient does not have a farm or ranch animal caretaker currently but saw Dr. Cardona four years ago when she was diagnosed with AFib. She is currently on Eliquis. Course during previous admission: -denies chest pain, EKG a paced at 115bpm, no ST elevation/depression, CXR pulm vascular congestion and pneumonia, Well's score 1.5, VQ scan low probability for PE, CT chest shows bibasilar consolidations ( pneumonia) -the sedation, abx vancomycin, ceftriaxone and Zithromax, steroids, bronchodilators, IV labetalol prn, IV hydralazine, clonidine, oral hydralazine, diltiazem, echo was normal -normal tsh/t4, blood cx negative, repeat lactic acid down trended. Hospital course: Chest x-ray shows No significant change from prior radiograph on , Persistent prominent interstitial markings with patchy tdmwg-vjlbwvv-qxhi-left basilar airspace disease. CT chest shows Increased bilateral lower lobe airspace disease, vgatv-xgdbpup-vopx-left. Trace bilateral pleural effusions WBC back to its normal range; D-dimer is slightly elevated at 0.89. V/Q scan done five days ago at last admission showed low probability of PE. Low Wells score of 1.5. SOB 2/2 pneumonia and CHF exacerbation- elevated right-sided heart pressures 63 mm Hg (37 mm Hg one-week ago) CTA not recommended due to contrast allergy. repeat V/Q scan at current admission also showed low probability of PE. Patient received antibiotics vancomycin, Zosyn, azithromycin to cover MRSA, Pseudomonas and atypicals organisms. Patient also received Solu-Medrol 40 mg q.6 hours, duo nebs q.4 scheduled and albuterol q.2h p.r.n., incentive spirometry. Continue IV Lasix 20 mg b.i.d. Continue patient's CPAP at night. Restarted home blood pressure medications and increase the hydralazine the dose from 50 mg Q8h to 100 mg [id number]. Patient takes metoprolol 100 mg b.i.d., diltiazem extended release 120 mg and Eliquis 5 mg b.i.d. for AFib. Heart rate is currently well controlled. Blood pressure control was significantly improved. Patient was discharged with inhalers, Lasix, GDMT with Jardiance and spironolactone, steroid taper. Vital Signs Date Time Temp Pulse Resp B/P (MAP) Pulse Ox O2 Delivery O2 Flow Rate FiO2 03/23/25 15:00 97.9 84 16 172/94 (120) 93 Room Air 03/23/25 12:22 0 21 Laboratory Tests Test 03/22/25 05:33 03/23/25 05:45 White Blood Count 19.9 X10'3 14.7 X10'3 Red Blood Count 4.71 X10'6 4.36 X10'6 Hemoglobin 14.4 g/dl 13.4 g/dl Hematocrit 43.0 % 39.8 % Mean Corpuscular Volume 91.4 FL 91.3 FL Mean Corpuscular Hemoglobin 30.5 PG 30.9 PG Mean Corpuscular Hemoglobin Concent 33.4 g/dL 33.8 g/dL Red Cell Distribution Width 14.1 % 14.5 % Platelet Count 263 X10'3 220 X10'3 Mean Platelet Volume 8.7 FL 8.6 FL Neutrophils (%) (Auto) 93.6 % 91.6 % Lymphocytes (%) (Auto) 4.6 % 5.4 % Monocytes (%) (Auto) 1.6 % 2.6 % Eosinophils (%) (Auto) 0 % 0 % Basophils (%) (Auto) 0.2 % 0.4 % Neutrophils # (Auto) 18.7 X10'3 13.5 X10'3 Lymphocytes # (Auto) 0.9 X10'3 0.8 X10'3 Monocytes # (Auto) 0.3 X10'3 0.4 X10'3 Eosinophils # (Auto) 0.0 X10'3 0.0 X10'3 Basophils # (Auto) 0.0 X10'3 0.1 X10'3 CBC Comment Sodium Level 139 MMOL/L 139 MMOL/L Potassium Level 3.6 MMOL/L 3.6 MMOL/L Chloride Level 100 MMOL/L 101 MMOL/L Carbon Dioxide Level 29.9 MMOL/L 29.6 MMOL/L Anion Gap 9 8 Blood Urea Nitrogen 18 MG/DL 20 MG/DL Creatinine 0.86 MG/DL 0.91 MG/DL Estimated GFR/1.73 m2 66 ML/MIN 62 ML/MIN BUN/Creatinine Ratio 20.9 22.0 Glucose Level 150 MG/DL 189 MG/DL Calcium Level 8.9 MG/DL 8.5 MG/DL Magnesium Level 1.9 MG/DL 1.9 MG/DL Total Bilirubin 0.8 MG/DL 0.5 MG/DL Aspartate Amino Transf (AST/SGOT) 17 U/L 16 U/L Alanine Aminotransferase (ALT/SGPT) 35 U/L 33 U/L Alkaline Phosphatase 87 IU/L 67 IU/L Total Protein 7.4 G/DL 6.6 G/DL Albumin 3.5 G/DL 3.1 G/DL Globulin 3.9 G/DL 3.5 G/DL Albumin/Globulin Ratio 0.9 0.9 Chemistry Comments Imaging: Chest x-ray: Radiographic assessment of the chest remains limited. No significant change from prior radiograph on 10/03/202Persistent prominent interstitial markings with patchy yzlie-hcklelt-fuxg-left basilar airspace disease. Echocardiogram: LV appears normal in size with moderate concentric hypertrophy. Overall systolic function appears normal. LVEF is 70%. RV appears normal in size and contractility. RVSP is estimated at 63 mmHG. MV is thickened with mild annular calcification and no stenosis. Moderate mitral regurgitation. The tricuspid valve is normal in structure. Moderate tricuspid regurgitation. Trivial anterior pericardial effusion with no evidence of hemodyamic compromise. Chest CT: Increased bilateral lower lobe airspace disease, qzlgt-itjxzqs-anpv-left. Trace bilateral pleural effusions. Unchanged fluid overload. Lung NM scan: Low probability for PE. Discharge recommendations: Follow up with the PCP, farm or ranch animal caretaker, sleep specialist in a week. We have prescribed antibiotics for five days, Lasix for 10 days and steroid taper for 12 days. Take them as prescribed. Continue using you inhalers, and CPAP daily. we have started on two new medications Jardiance and spironolactone for your heart failure. Take them as prescribed. Return to the ER if you have worsening shortness of breath or fever. *Problems/Diagnosis: (1) COPD exacerbation Status: Acute (2) Hypoxia Status: Acute (3) Uncontrolled hypertension Status: Acute (4) Acute exacerbation of chronic obstructive airways disease Status: Acute Total Time Spent on D/C: > 30 Minutes Date of Service: Mar 23, 2025 Billing Provider: LOYDA SINHA MD Common Visit Codes: 08146-IZL/OBS DISCH DAY >30min KYRA MOLINA, RES Mar 23, 2025 18:31 LOYDA SINHA MD Mar 24, 2025 15:53
== END 2025-03-23 15:34 | disposition home health service (06) | DRG 291 ==
LOC: ER 03:56 → ED HOLD 07:21 → PCU 3S 14:01
PROVIDERS: ADMIT Family Medicine; ATTEND Family Medicine
PROC: CB121ZZ Planar Nuclear Medicine Imaging of Lungs and Bronchi using Technetium 99m (Tc-99m) (ICD-10-PCS; principal; 2025-03-23)
DX: I11.0 Hypertensive heart disease with heart failure (principal); I50.33 Acute on chronic diastolic (congestive) heart failure; J96.01 Acute respiratory failure with hypoxia; J18.9 Pneumonia, unspecified organism; J44.1 Chronic obstructive pulmonary disease with (acute) exacerbation; J44.0 Chronic obstructive pulmonary disease with (acute) lower respiratory infection; Z68.42 Body mass index [BMI] 45.0-49.9, adult; E87.3 Alkalosis; E78.00 Pure hypercholesterolemia, unspecified; I48.91 Unspecified atrial fibrillation; I25.10 Atherosclerotic heart disease of native coronary artery without angina pectoris; I16.0 Hypertensive urgency; F17.210 Nicotine dependence, cigarettes, uncomplicated; G47.33 Obstructive sleep apnea (adult) (pediatric); E66.813 Obesity, class 3; I27.29 Other secondary pulmonary hypertension; I27.81 Cor pulmonale (chronic); I08.1 Rheumatic disorders of both mitral and tricuspid valves; Z95.5 Presence of coronary angioplasty implant and graft; Z88.8 Allergy status to other drugs, medicaments and biological substances; Z71.6 Tobacco abuse counseling
CPT/HCPCS: 36415; 71045; 71250; 78582; 80053; 80202; 81001; 83605; 83735; 83880; 84132; 84145; 84484; 85025; 85379; 85610; 85651; 85730; 86140; 87040; 87081; 93005; 93308; 94640; 94760; 96365; 96375; 97116; 97161; 97530; 99285; A4615; A6449; A9539; A9540; G0378; J0360; J0456; J1938; J2543; J2919; J3373; J3490; J7040

== ENCOUNTER 2025-04-11 11:52 | Emergency (ER) | payer BC ==
[~2025-04-11] VITALS: Ht 167.6 cm; Wt 118.8 kg
[~2025-04-11 11:52] MED LIST changes: +EMPA10TA PO; +FLUT1DIS20 INH; -FLUT1DIS4 INH; +FURO-150 PO; -ISOS30TA84 PO; +ISOS30TA9 PO; -LEVO750T68 PO; +PRED10TA23 PO; +SPIR25TA5 PO
[2025-04-11 12:00] VITALS: BP 152/77; PULSE 62; RESP 18; TEMP 97.8; O2SAT 95
--- NOTE | 2025-04-11 12:44 | Physician Documentation ---
History of Present Illness ~ Chief Complaint: Flu Symptoms Stated Complaint: MULTIPLE MED COMPLAINTS Time Seen by MD: 12:41 Primary Medical Doctor: Kirsty Tom MD HPI A 64-year-old female with a stated history of congestive heart failure who presents today due to nausea. She denies abdominal pain, chills or fever, chest pain or shortness of breath. She reports no significant peripheral edema. Medication Reconciliation Allergies: Coded Allergies: iodine (Verified Allergy, Severe, facial edema, 04/11/25) bupropion HCl (Verified Adverse Reaction, Unknown, increased depression, 1 06/11/24) Uncoded Allergies: IV DYE, IODINE CONTAINING CONTRAST (Allergy, Severe, facial edema, 06/28/22) Scheduled Apixaban (Eliquis), 1 TAB PO Q12H, (Reported) Atorvastatin Calcium (Atorvastatin Calcium), 1 TAB PO DAILY, (Reported) Diclofenac Sodium (Diclofenac Sodium), 2 GM TOP QID, (Reported) Diltiazem Hcl SR* (Cardizem SR*), 2 CAP PO BID, (Reported) Empagliflozin (Jardiance), 1 TAB PO DAILY Fluticasone/Salmeterol (Advair 250-50 Diskus), 1 PUFFS INH Q12H, (Reported) Furosemide (Lasix), 20 MG PO DAILY Hydralazine HCl (Hydralazine HCl), 1 TAB PO Q8H, (Reported) Isosorbide Dinitrate* (Isordil*), 1 TAB PO DAILY, (Reported) Metoprolol Tartrate (Metoprolol Tartrate), 1 TAB PO Q12H, (Reported) Olmesartan Medoxomil (Olmesartan Medoxomil), 1 TAB PO DAILY, (Reported) Prednisone (Prednisone), 0 PO DAILY Sertraline HCl (Sertraline HCl), 1 TAB PO DAILY, (Reported) Spironolactone (Spironolactone), 25 MG PO DAILY Scheduled PRN Albuterol Sulfate (Proair Respiclick), 2 PUFFS INH Q4HPRN PRN for shortness of breath, (Reported) ONDANSETRON ODT 4mg tablet (Ondansetron Odt), 1 TAB PO Q6H PRN PRN for nausea/vomiting Past Medical History Past Medical History: Atrial Fibrillation, Coronary Artery Disease, High Cholesterol, Hypertension, COPD Past Surgical History: orthopedic surgeries Other Past Surgical History: cardiac stents Alcohol Use: None Drug Use: none Lives In: Home Review of Systems ROS As stated above in the HPI, otherwise all systems are reviewed and negative. Physical Exam Vital Signs: Temperature: 97.8, Source: Oral, Heart Rate: 62, Respiratory Rate: 18, BP: 152/77, Pulse Oximetry: 95, Weight: 118.800 Oxygen Flow Rate: 0 Physical Exam General: Alert, no apparent distress. Neck: Full range of motion. Respiratory: Lungs clear, no respiratory distress. Chest: No accessory muscle use. Cardiovascular: Regular rate and rhythm, no murmurs. Gastrointestinal: Soft, nontender, nondistended. Bowels sounds present. Extremities: Normal range of motion, no deformity. Neurologic: Oriented x4. Psychiatric: Normal mood and affect. Skin: Normal color, warm and dry. No edema, no ecchymosis. Progress Results/Orders Results/Orders Completed Orders - YONI STRAUSS NP Ondansetron Disint. Tablet (Zofran Odt T (04/11/25 13:05) Vital Signs 04/11/25 12:00 Temp 97.8 Pulse 62 Resp 18 B/P (MAP) 152/77 Pulse Ox 95 O2 Flow Rate 0 Laboratory Tests Test 04/11/25 12:06 Influenza Type A Antigen Negative Influenza Type B Antigen Negative SARS-CoV-2 Antigen (Rapid) Negative Medical Decision Making Additional information obtaine: family Findings Last visit to this facility was on 03/20/2025 for community-acquired pneumonia Heart Score: 1 Differential Dx:Considerations: Include: anxiety, asthma, bronchitis, cardiogenic shock, CHF, COPD, dysrhythmia, hypertension, accelerated, h ypertension, essential, hypertension, malignant, hyperventilation, hyponatremia, myocardial infarction, panic attack, pneumonia, pneumonitis, pneumothorax, PSVT, pulmonary embolism, respiratory distress, respiratory failure, sinusitis, upper resp. infection Departure Time of Disposition: 13:16 Disposition: 01 HOME / SELF CARE / HOMELESS Impression: Primary Impression: Viral infection Condition: Stable Discharge Instructions: Viral Illness Additional Instructions: Tested negative for COVID and flu. You have some type of a virus that has causing nausea, and may cause vomiting. Utilize the prescribed ondansetron as needed for nausea. Take care to stay well hydrated. Follow up with your primary care, or return if worse. Referrals: NO PRIMARY CARE PROVIDER (PCP) Prescriptions ONDANSETRON ODT 4mg tablet (ONDANSETRON ODT) 4 Mg Tab.rapdis 1 TAB PO Q6H PRN PRN for nausea/vomiting for 4 Days, #16 TAB 0 Refills Prov: YONI STRAUSS NP 04/11/25 Education Educated: Patient, Family Educated regarding: diagnosis, treatment, prognosis, need for follow up Signature Scribe Signature: x Attestation: The note accurately reflects work and decisions made by me.Yoni Gagnon NP 04/11/25 13:07 YONI STRAUSS NP Apr 11, 2025 12:44
[2025-04-11 13:13] LABS: INFLUENZA TYPE A ANTIGEN RAPID NEGATIVE (Negative); INFLUENZA TYPE B ANTIGEN RAPID NEGATIVE (Negative)
[2025-04-11] MEDS ORDERED: ONDA-243 PO (13:17)
[2025-04-11] MEDS: ondansetron 4mg rapidly disintigrating tab PO ONE (13:37)
== END 2025-04-11 13:39 | disposition home or self-care (01) ==
LOC: ER 11:53
DX: B34.9 Viral infection, unspecified (principal); E78.00 Pure hypercholesterolemia, unspecified; I11.0 Hypertensive heart disease with heart failure; I50.9 Heart failure, unspecified; I25.10 Atherosclerotic heart disease of native coronary artery without angina pectoris; I48.91 Unspecified atrial fibrillation; J44.9 Chronic obstructive pulmonary disease, unspecified; Z88.8 Allergy status to other drugs, medicaments and biological substances; Z95.5 Presence of coronary angioplasty implant and graft; Z20.822 Contact with and (suspected) exposure to COVID-19
CPT/HCPCS: 36415; 87804; 87811; 99283

== ENCOUNTER 2025-05-12 20:46 | Emergency (ER) | payer BC ==
[~2025-05-12] VITALS: Ht 167.6 cm; Wt 121.6 kg
[~2025-05-12 20:46] MED LIST changes: +ONDA-243 PO; -PRED10TA23 PO
--- NOTE | 2025-05-12 20:59 | ELECTROCARDIOGRAPH REPORT ---
[facility] Test Date: 2025-05-12 Test Time: 20:51:24 Pat Name: MARGAERTH RAM Department: EMERGENCY ROOM Room: Gender: F Consolidator: KD : 1960 Requested By: MARCO A CHRISTIAN Order Number: [id number] Reading MD: Dr. PANFILO Rene Measurements Intervals [place] Rate: 91 P: 0 [place]: 0 QRS: 6 QRSD: 87 T: 60 QT: 382 QTc: 471 Interpretive Statements Atrial fibrillation Electronically Signed On 05-14-2025 16:55:[address] PANFILO Rene Please click the below link to view image of tracing.
[2025-05-12 21:25] LABS: MEAN PLATELET VOLUME 8.6 FL (7.4-10.4); RED CELL DISTRIBUTION WIDTH 15.3 % (11.5-14.5)
--- NOTE | 2025-05-12 21:33 | RADIOLOGY REPORT ---
EXAM: DI CHEST,SINGLE VIEW TECHNIQUE: Single frontal chest radiograph CLINICAL HISTORY: CP COMPARISON: CT CT CHEST on DOS: 03/20/25, DI CHEST,SINGLE VIEW on DOS: 03/20/25, CT CT CHEST on DOS: 03/13/25, DI CHEST,SINGLE VIEW on DOS: 03/13/25, CHEST,SINGLE VIEW on DOS: 07/19/22 FINDINGS/IMPRESSION: The lungs are clear. The cardiomediastinal silhouette is unchanged. No pleural effusion or pneumothorax. No acute osseous abnormality.
[2025-05-12 21:40] LABS: CREATININE 0.86 MG/DL (0.40-0.90); PRO BRAIN NATRIURETIC PEPTIDE 1271 PG/ML (0-125); TOTAL CARBON DIOXIDE 29.0 MMOL/L (24-32); eCRCL 62 ML/MIN; eGFR 66 ML/MIN
--- NOTE | 2025-05-12 23:44 | Physician Documentation ---
History of Present Illness ~ Chief Complaint: Chest Wall Pain Stated Complaint: CHEST PAIN Time Seen by MD: 23:43 Primary Medical Doctor: Kirsty Tom MD Mode of Arrival: POV HPI Patient presents to the emergency room for evaluation of right-sided chest pain that she has been noticing while going to bed over the past few nights. No exacerbating or relieving factors. Patient does not smoke but does have high blood pressure. Denies any cholesterol or diabetes. Family history of father with heart attack in his 60s. Medication Reconciliation Allergies: Coded Allergies: iodine (Verified Allergy, Severe, facial edema, 05/12/25) bupropion HCl (Verified Adverse Reaction, Unknown, increased depression, 05/12/25) Uncoded Allergies: IV DYE, IODINE CONTAINING CONTRAST (Allergy, Severe, facial edema, 06/28/22) Scheduled Apixaban (Eliquis), 1 TAB PO Q12H, (Reported) Atorvastatin Calcium (Atorvastatin Calcium), 1 TAB PO DAILY, (Reported) Diclofenac Sodium (Diclofenac Sodium), 2 GM TOP QID, (Reported) Diltiazem Hcl SR* (Cardizem SR*), 2 CAP PO BID, (Reported) Empagliflozin (Jardiance), 1 TAB PO DAILY Fluticasone/Salmeterol (Advair 250-50 Diskus), 1 PUFFS INH Q12H, (Reported) Furosemide (Lasix), 20 MG PO DAILY Hydralazine HCl (Hydralazine HCl), 1 TAB PO Q8H, (Reported) Isosorbide Dinitrate* (Isordil*), 1 TAB PO DAILY, (Reported) Metoprolol Tartrate (Metoprolol Tartrate), 1 TAB PO Q12H, (Reported) Olmesartan Medoxomil (Olmesartan Medoxomil), 1 TAB PO DAILY, (Reported) Sertraline HCl (Sertraline HCl), 1 TAB PO DAILY, (Reported) Spironolactone (Spironolactone), 25 MG PO DAILY Scheduled PRN Albuterol Sulfate (Proair Respiclick), 2 PUFFS INH Q4HPRN PRN for shortness of breath, (Reported) ONDANSETRON ODT 4mg tablet (Ondansetron Odt), 1 TAB PO Q6H PRN PRN for nausea/vomiting Past Medical History Past Medical History: Atrial Fibrillation, Coronary Artery Disease, High Cholesterol, Hypertension, COPD Past Surgical History: orthopedic surgeries Other Past Surgical History: cardiac stents Alcohol Use: None Drug Use: none Lives In: Home Review of Systems ROS All review of systems negative except as per HPI Physical Exam Vital Signs: Temperature: 97.3, Source: Oral, Heart Rate: 74, Respiratory Rate: 16, BP: 164/101, Pulse Oximetry: 97, Weight: 121.600 Oxygen Flow Rate: 0 Physical Exam General: Patient is awake, alert, oriented x4 in no acute distress and well appearing.~ Head: Normocephalic and atraumatic. Eyes: Conjunctival normal. EOMI. PERRL. ENT: Mucous membranes moist. Neck: Supple, trachea is midline. Chest: Clear to auscultation bilaterally without rales, rhonchi, or wheezes. There is no accessory muscle use or retractions. Tenderness to palpation right sternocostal border Cardiac: RRR without murmurs, gallops, or rubs. Abd: Soft, nondistended, nontender, with normoactive bowel sounds. No guarding, rebound, or rigidity. Extremities: Normal strength. Normal range of motion. No deformities or edema. No tenderness to palpation of calves Progress Results/Orders Results/Orders Orders - SIMONE GOSS MD Chest,Single View (05/12/25 21:12) Monitor (05/12/25 20:57) Saline Lock (05/12/25 20:57) Oxygen (05/12/25 20:57) Hs Troponin I W Calculations (05/12/25 23:57) Completed Orders - SIMONE GOSS MD Chest,Single View (05/12/25 21:12) Cbc/Diff (05/12/25 20:57) BMP (05/12/25 20:57) PBNP (05/12/25 20:57) Electrocardiogram (05/12/25 20:57) Hs Troponin I W Calculations (05/12/25 20:57) Hs Troponin I W Calculations (05/12/25 22:57) Vital Signs 05/12/25 05/12/25 05/12/25 05/12/25 20:48 22:46 22:46 23:56 Temp 97.3 97.3 97.3 Pulse 73 74 74 Resp 16 16 16 B/P (MAP) 159/108 164/101 (122) 137/117 (124) Pulse Ox 97 97 97 O2 Flow Rate 0 0 0 Laboratory Tests Test 05/12/25 20:54 05/12/25 23:15 White Blood Count 7.7 Red Blood Count 4.92 Hemoglobin 15.3 Hematocrit 44.8 Mean Corpuscular Volume 91.0 Mean Corpuscular Hemoglobin 31.2 H Mean Corpuscular Hemoglobin Concent 34.2 Red Cell Distribution Width 15.3 H Platelet Count 180 Mean Platelet Volume 8.6 Neutrophils (%) (Auto) 64.0 Lymphocytes (%) (Auto) 28.3 Monocytes (%) (Auto) 6.0 Eosinophils (%) (Auto) 1.3 Basophils (%) (Auto) 0.4 Neutrophils # (Auto) 4.9 Lymphocytes # (Auto) 2.2 Monocytes # (Auto) 0.5 Eosinophils # (Auto) 0.1 Basophils # (Auto) 0.0 CBC Comment Sodium Level 142 Potassium Level 4.1 Chloride Level 107 Carbon Dioxide Level 29.0 Anion Gap 6 L Blood Urea Nitrogen 15 Creatinine 0.86 Estimated GFR/1.73 m2 66 BUN/Creatinine Ratio 17.4 Glucose Level 128 H Calcium Level 8.6 Troponin I High Sensitivity 5 7 Pro-B-Type Natriuretic Peptide 1271 H Albumin 3.5 Chemistry Comments Troponin I High Sens Percent Delta 40 Troponin I Hi Sens Absolute Change 2 EKG/XRAY/CT/US/VASC/MRI EKG : Additional Comment EKG interpreted by myself shows time of 2050, rate 91, atrial fibrillation, normal axis, no ST changes Chest X-Ray : Additional Comments Exam: CHEST,SINGLE VIEW EXAM: DI CHEST,SINGLE VIEW TECHNIQUE: Single frontal chest radiograph CLINICAL HISTORY: CP COMPARISON: CT CT CHEST on DOS: 03/20/25, DI CHEST,SINGLE VIEW on DOS: 03/20/25, CT CT CHEST on DOS: 03/13/25, DI CHEST,SINGLE VIEW on DOS: 03/13/25, CHEST,SINGLE VIEW on DOS: 07/19/22 FINDINGS/IMPRESSION: The lungs are clear. The cardiomediastinal silhouette is unchanged. No pleural effusion or pneumothorax. No acute osseous abnormality. Medical Decision Making Additional information obtaine: old records Findings Patient presents to the emergency room with atypical right-sided chest pain. Heart score of three. Differentials include but are not limited to ACS, pulmonary embolism, musculoskeletal pain, aortic pathology therefore emergent labs and imaging indicated. Labs and imaging reassuring. She is considered low risk. The need to follow up with her doctor discussed Heart Score: 3 Differential Dx:Considerations: Include: angina, aortic dissection, chest wall pain, cholelithiasis, CHF, costochondritis, esophageal reflux/spasm, gastritis, herpes zoster, myocardial infarction, pericarditis, pleuritis, pancreatitis, pneumonia, pneumothorax, pulmonary embolus, other Departure Disposition: HOME / SELF CARE / HOMELESS Impression: Primary Impression: Chest pain Condition: Stable Discharge Instructions: Chest Wall Pain Additional Instructions: Follow up with your doctor in inquire about possible stress test Referrals: NO PRIMARY CARE PROVIDER (PCP) Signature Scribe Signature: No scribe Attestation: The note accurately reflects work and decisions made by me.Simone Goss MD 05/13/25 00:08 SIMONE GOSS MD May 12, 2025 23:44
[2025-05-12 23:56] VITALS: BP 137/117; PULSE 74; RESP 16; TEMP 97.3; O2SAT 97
== END 2025-05-13 00:15 | disposition home or self-care (01) ==
LOC: ER 20:47
DX: R07.9 Chest pain, unspecified (principal); I10 Essential (primary) hypertension; E78.00 Pure hypercholesterolemia, unspecified; I25.10 Atherosclerotic heart disease of native coronary artery without angina pectoris; I48.91 Unspecified atrial fibrillation; J44.9 Chronic obstructive pulmonary disease, unspecified; Z95.5 Presence of coronary angioplasty implant and graft; Z88.8 Allergy status to other drugs, medicaments and biological substances; Z79.899 Other long term (current) drug therapy; Z98.890 Other specified postprocedural states
CPT/HCPCS: 36415; 71045; 80048; 83880; 84484; 85025; 93005; 99285

== ENCOUNTER 2025-05-27 14:38 | Emergency (ER) | payer BC ==
[~2025-05-27] VITALS: Ht 165.1 cm; Wt 122.3 kg
--- NOTE | 2025-05-27 14:44 | ELECTROCARDIOGRAPH REPORT ---
[facility] Test Date: 2025-05-27 Test Time: 14:43:03 Pat Name: MARGARETH RAM Department: EMERGENCY ROOM Room: Gender: F Stock Tracer: : 1960 Requested By: JUDITH BARRETO Order Number: [id number] Reading MD: Measurements Intervals [place] Rate: 81 P: 0 [place]: 0 QRS: 10 QRSD: 90 T: 90 QT: 381 QTc: 443 Interpretive Statements Atrial fibrillation Repol abnrm suggests ischemia, lateral leads Please click the below link to view image of tracing.
[2025-05-27 15:06] LABS: MEAN PLATELET VOLUME 8.3 FL (7.4-10.4); RED CELL DISTRIBUTION WIDTH 15.0 % (11.5-14.5)
--- NOTE | 2025-05-27 15:23 | RADIOLOGY REPORT ---
EXAM: DI CHEST,SINGLE VIEW HISTORY: CP COMPARISON: DI CHEST,SINGLE VIEW on DOS: 05/12/25, DI CHEST,SINGLE VIEW on DOS: 03/20/25, DI CHEST,SINGLE VIEW on DOS: 03/13/25, CHEST,SINGLE VIEW on DOS: 07/19/22, CHEST,SINGLE VIEW on DOS: 06/28/22, chest CT dated 03/20/2025. TECHNIQUE: Portable AP view of the chest was performed. FINDINGS: There is pulmonary vascular congestion. No pneumothorax or consolidative infiltrates. Azygous lobe is incidentally noted. The heart is mildly enlarged. There is thoracic degenerative disc disease. IMPRESSION: Cardiomegaly and pulmonary vascular congestion consistent with mild CHF.
[2025-05-27 15:59] LABS: CREATININE 0.92 MG/DL (0.40-0.90); PRO BRAIN NATRIURETIC PEPTIDE 511 PG/ML (0-125); TOTAL CARBON DIOXIDE 33.7 MMOL/L (24-32); eCRCL 56 ML/MIN; eGFR 61 ML/MIN
[2025-05-27] MEDS ORDERED: HYDR50TA46 PO (18:51)
[2025-05-27] MEDS ORDERED: SPIR25TA5 PO (18:51)
--- NOTE | 2025-05-27 18:51 | Physician Documentation ---
History of Present Illness ~ Chief Complaint: Rapid Heartbeat Stated Complaint: IRREG HEART RATE Time Seen by MD: 18:38 Primary Medical Doctor: Kirsty Tom MD HPI 64-year-old female with a known past medical history of hypertension and CHF presents to the emergency department because of dyspnea on exertion and tachycardia. He has been no syncope and no specific complaint of chest pain. She has been unable to obtain her prescriptions in his reached out numerous times to the [facility]. She has been without hydralazine in his spironolactone. Upon discharge from the hospital she was to follow up with Dr. Cardona on the 12 of May however was unable to make that appointment. She was also to transition off her Lasix on the spironolactone is unable to obtain a Lasix or the spironolactone. She has had trace lower extremity dependent edema, no cough or andi shortness of breath. Medication Reconciliation Allergies: Coded Allergies: iodine (Verified Allergy, Severe, facial edema, 05/12/25) bupropion HCl (Verified Adverse Reaction, Unknown, increased depression, 05/12/25) Uncoded Allergies: IV DYE, IODINE CONTAINING CONTRAST (Allergy, Severe, facial edema, 06/28/22) Scheduled Apixaban (Eliquis), 1 TAB PO Q12H, (Reported) Atorvastatin Calcium (Atorvastatin Calcium), 1 TAB PO DAILY, (Reported) Diclofenac Sodium (Diclofenac Sodium), 2 GM TOP QID, (Reported) Diltiazem Hcl SR* (Cardizem SR*), 2 CAP PO BID, (Reported) Empagliflozin (Jardiance), 1 TAB PO DAILY Fluticasone/Salmeterol (Advair 250-50 Diskus), 1 PUFFS INH Q12H, (Reported) Furosemide (Lasix), 20 MG PO DAILY Hydralazine HCl (Hydralazine HCl), 1 TAB PO Q8H, (Reported) Hydralazine HCl (Hydralazine HCl), 1 TAB PO Q8H Isosorbide Dinitrate* (Isordil*), 1 TAB PO DAILY, (Reported) Metoprolol Tartrate (Metoprolol Tartrate), 1 TAB PO Q12H, (Reported) Olmesartan Medoxomil (Olmesartan Medoxomil), 1 TAB PO DAILY, (Reported) Sertraline HCl (Sertraline HCl), 1 TAB PO DAILY, (Reported) Spironolactone (Spironolactone), 25 MG PO DAILY Spironolactone (Spironolactone), 1 TAB PO DAILY Scheduled PRN Albuterol Sulfate (Proair Respiclick), 2 PUFFS INH Q4HPRN PRN for shortness of breath, (Reported) ONDANSETRON ODT 4mg tablet (Ondansetron Odt), 1 TAB PO Q6H PRN PRN for nausea/vomiting Past Medical History Past Medical History: Atrial Fibrillation, Coronary Artery Disease, High Cholesterol, Hypertension, COPD Past Surgical History: orthopedic surgeries Other Past Surgical History: cardiac stents Alcohol Use: None Drug Use: none Lives In: Home Review of Systems All Other Systems at this time: Reviewed and Negative Constitutional: Reports: see HPI Physical Exam Vital Signs: RN Vital Signs have been reviewed: Yes, Temperature: 96.7, Source: Temporal, Heart Rate: 82, Respiratory Rate: 16, BP: 163/100, Pulse Oximetry: 97, Weight: 122.300 Oxygen Flow Rate: 0 General Appearance: alert, WD/WN EENT: normal ENT inspection Neck: normal inspection Respiratory: lungs clear Chest: no accessory muscle use Cardiovascular: normal peripheral pulses Gastrointestinal: non-tender Back: normal inspection Extremities: normal inspection Neurologic: oriented x4 Psych: normal mood/affect Skin: normal color Progress Results/Orders Results/Orders Completed Orders - KATHY CHAN PAC Furosemide Tablet (Lasix Tablet) (05/27/25 18:50) Vital Signs 05/27/25 05/27/25 05/27/25 05/27/25 14:49 18:01 18:38 18:46 Temp 96.7 96.7 Pulse 71 90 82 Resp 20 19 16 B/P (MAP) 163/80 187/100 (129) 163/100 (121) Pulse Ox 96 97 97 O2 Flow Rate 0 0 0 05/27/25 19:03 Temp 96.7 Pulse 79 Resp 16 B/P (MAP) 161/108 Pulse Ox 98 Laboratory Tests Test 05/27/25 14:48 05/27/25 17:39 05/27/25 18:54 White Blood Count 7.3 Red Blood Count 5.02 Hemoglobin 15.5 Hematocrit 46.0 H Mean Corpuscular Volume 91.6 Mean Corpuscular Hemoglobin 30.8 Mean Corpuscular Hemoglobin Concent 33.6 Red Cell Distribution Width 15.0 H Platelet Count 216 Mean Platelet Volume 8.3 Neutrophils (%) (Auto) 65.8 Lymphocytes (%) (Auto) 25.0 Monocytes (%) (Auto) 7.2 Eosinophils (%) (Auto) 1.1 Basophils (%) (Auto) 0.9 Neutrophils # (Auto) 4.8 Lymphocytes # (Auto) 1.8 Monocytes # (Auto) 0.5 Eosinophils # (Auto) 0.1 Basophils # (Auto) 0.1 CBC Comment Sodium Level 140 Potassium Level 3.7 Chloride Level 102 Carbon Dioxide Level 33.7 H Anion Gap 4 L Blood Urea Nitrogen 11 Creatinine 0.92 H Estimated GFR/1.73 m2 61 BUN/Creatinine Ratio 12.0 Glucose Level 137 H Calcium Level 8.9 Troponin I High Sensitivity 7 7 7 Pro-B-Type Natriuretic Peptide 511 H Albumin 3.9 Chemistry Comments Troponin I High Sens Percent Delta 0 0 Troponin I Hi Sens Absolute Change 0 0 Medical Decision Making Additional information obtaine: family Findings 64-year-old female with a known history of congestive heart failure high blood pressure. Patient has been without her medications since discharge several months ago. Specifically she was supposed to transition from Lasix to spironolactone and begin hydralazine 3 times a day. She has been unable to attend these medications and/or establish with primary care. She furthermore Mr. Cardiology follow up appointment on the 12 of May. She is without chest pain at this time and requires Lasix p.o.. All labs are reviewed. Electrolytes are without derangement. Patient to be discharged to primary care/Cardiology and we will be provided prescriptions for hydralazine and spironolactone to begin as directed. Patient's safely discharged in the emergency department with all questions and concerns addressed. Differential Dx:Considerations: Include: angina / AL, atrial dysrhythmia, atrial fibrillation, atrial flutter, MAT, PACs, PSVT, sinus tachycardia, WPW, 1st degree AV block, 2nd degree AVB-type 1, 2nd degree AVB-type 2, 3rd degree AV block, PVCs, torsades de pointes, ventricular fibrillation, ventricular tachycardia, other Differential Dx:Considerations: Include anxiety/panic attack, Include digoxin toxicity, Include electrolyte disorder, Include heart failure, Include hyperthyroidism, Include hyperventilation, Include hypoxia, Include pacemaker malfunction, Include pulmonary embolus, Include renal failure, Include other Departure Disposition: 01 HOME / SELF CARE / HOMELESS Impression: Primary Impression: CHF (congestive heart failure) Qualified Codes: I50.9 - Heart failure, unspecified Condition: Stable Discharge Instructions: Heart Failure Medicines, Heart Failure, Diagnosis, [id number] Additional Instructions: Tonight in the emergency department you had labs, EKG and chest x-ray imaging. All consistent with with mild exacerbation of your congestive heart failure. You received oral Lasix and I have sent prescriptions for you to obtain that you has been missing which were hydralazine and spironolactone. Please begin as directed and rescheduled your missed appointment with Dr. Cardona. Return to the emergency department as needed. Thank you for visiting [facility]. Referrals: NO PRIMARY CARE PROVIDER (PCP) Prescriptions Hydralazine HCl (Hydralazine HCl) 50 Mg Tablet 1 TAB PO Q8H for 30 Days, #90 TAB 0 Refills Prov: KATHY CHAN 05/27/25 Spironolactone (Spironolactone) 25 Mg Tablet 1 TAB PO DAILY for 30 Days, #30 TAB 0 Refills Prov: KATHY CHAN 05/27/25 Education Educated: Patient Educated regarding: diagnosis, treatment, prognosis, need for follow up Signature Scribe Signature: . Attestation: . KATHY CHAN May 27, 2025 18:51
[2025-05-27 19:03] VITALS: BP 161/108; PULSE 79; RESP 16; TEMP 96.7; O2SAT 98
== END 2025-05-27 19:05 | disposition home or self-care (01) ==
LOC: ER 14:39
DX: I11.0 Hypertensive heart disease with heart failure (principal); I50.9 Heart failure, unspecified; I48.91 Unspecified atrial fibrillation; I25.10 Atherosclerotic heart disease of native coronary artery without angina pectoris; E78.00 Pure hypercholesterolemia, unspecified; J44.9 Chronic obstructive pulmonary disease, unspecified; Z95.5 Presence of coronary angioplasty implant and graft; Z88.8 Allergy status to other drugs, medicaments and biological substances; Z79.899 Other long term (current) drug therapy; Z98.890 Other specified postprocedural states
CPT/HCPCS: 36415; 71045; 80048; 83880; 84484; 85025; 93005; 99285